=== PATIENT | female | born 1955 | race Caucasian/White ===

== ENCOUNTER 2016-08-04 10:07 | Emergency (ER) | payer OTHER ==
[~2016-08-04] VITALS: Ht 170.1 cm; Wt 55.8 kg
[~2016-08-04 10:07] MED LIST: ADVAIR 250/501 EA INH; ALBUTEROL0.09 MG/Ac INH; ALBUTEROL2.5 MG/0.5 INH; BACTRIM DS 8001 TA1 PO; CLORAZEPATE DI7.5 MG PO; CYCLOBENZAPRINE15 M1 PO; DULOXETINE HCL DR 60; HYDROCODONE BIT1 T11 PO; HYDROCODONE-ACETAMIN; KEFLEX500 MG PO; MELOXICAM15 MG PO; METOPROLOL SUCC ER 2; NASONEX0.05 MG/AC NAS; OMEPRAZOLE DR20 MG PO; PREDNISONE10 MG PO; SIMVASTATIN10 MG PO; SINGULAIR10 MG PO; SPIRIVA -- 3018 MCG PO; VIBRAMYCIN100 MG PO
[2016-08-04] MEDS ORDERED: PROAIR HFA8.5 GM INH (10:19)
[2016-08-04] MEDS ORDERED: ASPIR LOW81 MG PO (10:20)
[2016-08-04] MEDS ORDERED: DULOXETINE HCL60 MG PO (10:20)
[2016-08-04] MEDS ORDERED: METOPROLOL SUCC25 M2 PO (10:20)
[2016-08-04] MEDS ORDERED: MONTELUKAST SOD10 MG PO (10:21)
[2016-08-04] MEDS ORDERED: HYDROCODONE BIT1 T20 PO (10:21)
[2016-08-04] MEDS ORDERED: Tranxene7.5 MG PO (10:21)
[2016-08-04] MEDS ORDERED: CYCLOBENZAPRINE10 MG PO (10:22)
[2016-08-04] MEDS ORDERED: OMEPRAZOLE D/R20 MG PO (10:22)
[2016-08-04] MEDS ORDERED: NASONEX0.05 MG/AC NAS (10:22)
[2016-08-04] MEDS ORDERED: ADVAIR HFA 230/1 AER INH (10:23)
[2016-08-04] MEDS ORDERED: MELOXICAM15 MG PO (10:23)
[2016-08-04] MEDS ORDERED: DULE1ARO INH (10:23)
[2016-08-04] MEDS ORDERED: SIMVASTATIN10 MG PO (10:24)
[2016-08-04 10:50] LABS: BASO # 0.1 10*3/uL (0.0-0.1); BASO % 0.6 % (0.0-1.0); EOS # 0.6 10*3/uL (0.0-0.4); EOS % 4.8 % (1.0-4.0); HEMATOCRIT 42.6 % (37.0-47.0); HEMOGLOBIN 13.9 g/dl (12.0-16.0); IG # 0.1 10*3/uL (0.0-0.1); LYMPH # 3.4 10*3/uL (1.3-4.4); LYMPH % 27.7 % (27.0-41.0); MEAN CELL VOLUME 94.9 fl (81.0-99.0); MEAN CORPUSCULAR HGB CONC 32.6 g/dl (33.0-37.0); MONO % 7.7 % (3.0-9.0); NEUT # 7.3 10*3/uL (2.3-7.9); NEUT % 58.8 % (47.0-73.0); PLATELET COUNT AUTOMATED 407 10*3/uL (130-400); RED BLOOD COUNT 4.49 10*6/uL (4.10-5.10); WHITE BLOOD COUNT 12.4 10*3/uL (4.8-10.8)
[2016-08-04 11:07] LABS: ALBUMIN 3.7 gm/dl (3.1-4.5); ALKALINE PHOSPHATASE 95 U/L (45-117); BILIRUBIN, TOTAL 0.5 mg/dl (0.2-1.0); BUN 7 mg/dl (7-24); CARBON DIOXIDE 32 mmol/L (21-32); CHLORIDE 95 mmol/L (98-107); EST GLOM FILT AFRICAN AMERICAN > 60 ml/min; GLUCOSE 97 mg/dL (65-99); MAGNESIUM 1.9 mg/dL (1.5-2.1); POTASSIUM 4.4 mmol/L (3.5-5.1); SGOT/AST 11 IU/L (3-35); SGPT/ALT 13 U/L (12-78); SODIUM 132 mmol/L (136-145); TOTAL PROTEIN 8.2 gm/dL (6.4-8.2)
[2016-08-04 11:08] LABS: TROPONIN I < 0.015 ng/ml (<0.045)
[2016-08-04] MEDS ORDERED: AVPAK AZITHROM250 M1 PO (11:13)
[2016-08-04] MEDS ORDERED: PREDNISONE50 MG PO (11:24)
== END 2016-08-04 11:39 | disposition left against medical advice (07) ==
LOC: ED 10:07
PROVIDERS: Student in an Organized Health Care Education/Training Program
DX: A41.9 Sepsis, unspecified organism (principal); J44.9 Chronic obstructive pulmonary disease, unspecified; F17.200 Nicotine dependence, unspecified, uncomplicated; Z79.899 Other long term (current) drug therapy; Z79.82 Long term (current) use of aspirin

== ENCOUNTER 2017-01-06 15:44 | Inpatient (IN) | payer OTHER ==
[~2017-01-06] VITALS: Ht 170.1 cm; Wt 52.7 kg
--- NOTE | ~2017-01-06 | PR ---
[place], [place] PROGRESS NOTE NAME: ADELINE VAZQUEZ [facility] #: [id number] UNIT #: [id number] ROOM: 415 DOCTOR: LUCILLE FISHER MD,ADRIANE BIRTHDATE: [birth year] DOS: 01/10/2017 SUBJECTIVE: She has been still noted with coughing and expectorating moderate amount of purulent sputum. Shortness of breath has been noted with gradual reduction, but still noted significant shortness of breath. Denies symptoms of chest pain. Symptoms of hemoptysis using oxygen supplementation via nasal cannula. Continue bronchodilators and antibiotics. OBJECTIVE: VITAL SIGNS: For the patient which has been recorded showed normal temperature, respiratory rate 20, heart rate 116, 97, blood pressure 106/86-139/84. Intake for the patient 2440 mL, the output was not recorded. Pulse ox saturation on 2 liters via nasal cannula was 94% saturation recorded. HEENT: Showed no new change. NECK: Supple. CARDIOVASCULAR: S1, S2 audible. LUNGS: Decreased breath sounds noted in the lungs bilaterally with expiratory wheezing, no crackles. ABDOMEN: Soft, nontender. LABORATORY DATA: BMP: Sodium 129, CO2 of 33. CBC of this morning, WBC count 15.5, hemoglobin 10.2, hematocrit 32.2, and platelet count 435,000. Culture of the sputum for patient previously noted with evidence of Enterobacter cloacae. Echocardiogram that was done for this patient on 01/09/2017 for the patient, which was assessed by Dr. Stevens for the patient reported that findings of possibility of small pleural fluid. No major other abnormalities for the patient were described. IMPRESSION: 1. The patient who has been currently noted with findings of acute severe exacerbation of chronic obstructive pulmonary disease, acute tracheobronchitis, gram-negative infection, Enterobacter cloacae. 2. Area of scarring in the patient's right upper lobe for this patient as well as a new pulmonary nodule in the left upper lobe for the patient, which requires further assessment to rule out malignant process. PLAN OF TREATMENT: The patient on current antibiotics for this patient based on the current culture results and sensitivities. Continuation of the oxygen supplementation as well. Continue current dose of Solu-Medrol 60 mg b.i.d., which was changed from yesterday to this dose. No further reduction for this patient at this time needs to be done today. Other supportive therapy, plan of management, maintain oxygen saturation at 90% greater. [place], [place] PROGRESS NOTE NAME: ADELINE VAZQUEZ UNIT #: [id number] ROOM: [facility] DOCTOR: ADRIANE KARIMI MD BIRTHDATE: [birth year] ADRIANE ADKINS MD CM:PNTRANS [phone] ADRIANE FISHER MD 01/10/17 1306 interface
--- NOTE | ~2017-01-06 | PR ---
[place], [place] PROGRESS NOTE [facility]: [id number] UNIT #: [id number] ROOM: 415 DOCTOR: ADRIANE KARIMI MD BIRTHDATE: [birth year] DOS: 01/09/2017 SUBJECTIVE: She has been noted better this morning with reduction in symptoms of shortness breath. Cough has been still noted at times with some sputum expectoration. Denies symptoms of chest pain. Denies symptoms of hemoptysis. She was continued on oxygen supplementation with the bronchodilators and also receiving corticosteroids and antibiotics. Currently, the patient was receiving the Levaquin. OBJECTIVE: VITAL SIGNS: For the patient which has been recorded showed the blood pressure recorded 144/88, heart rate 106, respiratory rate 18, temperature was normal. HEENT: Showed no new change. NECK: Supple. CARDIOVASCULAR: S1, S2 audible. LUNGS: Noted with moderate decreased breath sounds noted in the lungs bilaterally. Expiratory wheezing was present. ABDOMEN: Soft, nontender. EXTREMITIES: Shows no edema. LABORATORY DATA: BMP this morning, sodium 132, remaining BMP was normal. CBC: WBC count 19,000, hemoglobin 9.8, hematocrit 30.7, platelet count was normal. Culture of the sputum for the patient from the 4th shows evidence of heavy growth of gram-negative bacilli, which has been identified as Enterobacter cloacae that were noted sensitive to multiple antibiotics including fluoroquinolones, which is already received by the patient. IMPRESSION: 1. The patient who has been currently treated in the hospital for the medical management of acute exacerbation of chronic obstructive pulmonary disease with acute bacterial bronchitis with Enterobacter cloacae. 2. Pulmonary nodule in the patient's left upper lung as pleural thickening of the right upper lung, needs further to be investigated to exclude any malignant process. PLAN OF TREATMENT: Continuation of current antibiotics and bronchodilators and oxygen supplementation. Change the dose of the corticosteroid from 60 mg q.8 hours to 60 mg b.i.d. dosing. Monitor respiratory status closely. Consider physical therapy eval. Usual care. All other treatment plan and management to be continued for the patient based on the progression of the illness. [place], [place] PROGRESS NOTE NAME: ADELINE VAZQUEZ UNIT #: [id number] ROOM: 415 DOCTOR: AZIZ ADRIANE FISHER MD BIRTHDATE: [birth year] ADRIANE ADKINS MD CM:MORGAN [phone] ADRIANE FISHER MD 01/09/17 1327 interface
--- NOTE | ~2017-01-06 | PR ---
[place], [place] PROGRESS NOTE NAME: ADELINE VAZQUEZ [facility] #: [id number] UNIT #: [id number] ROOM: 415 DOCTOR: ADRIANE KARIMI MD BIRTHDATE: [birth year] DOS: 01/11/2017 SUBJECTIVE: The patient was independently seen and examined with [id number] encounter. The history was confirmed and physical examination performed, all the available labs were reviewed. Any changes in the medical management were done personally for today's visit. The note done by the medical illustrator was approved as well. She has been noted comfortable at this time, resting on the chair with reduction of symptoms of shortness breath was noted. Denies symptoms of hemoptysis still noted with overall general weakness and fatigue. OBJECTIVE: VITAL SIGNS: For the patient which were recorded showed the temperature noted recorded normal, respiratory rate 20, heart rate 126-92, blood pressure 116/64-149/92, pulse oxygen saturation on 2 liters nasal cannula 93% saturation recorded. HEENT: Shows no acute change. NECK: Supple. CARDIOVASCULAR: S1, S2 audible. LUNGS: Noted moderate decreased breath sounds, scattered wheezing. No crackles. ABDOMEN: Soft, nontender. LABORATORY DATA: BMP today, sodium still noted mildly decreased at 131. CBC was noted as hemoglobin 9.3, hematocrit 28.8. IMPRESSION: 1. Persistent mild hyponatremia was still noted. At this time, the etiology remains unclear. 2. Resolving acute exacerbation of chronic obstructive pulmonary disease as well. 3. Overall severe debility was still noted. Ambulation were noted quite limited. PLAN OF MANAGEMENT: The patient will benefit from physical therapy assessment. The patient to determine further disposition. Rather the patient will need the correction facility placement or home physical therapy, the patient needs to be determined. Uric acid, TSH level, random cortisol level was ordered for the assessment of the low sodium, which has been noted persistent. Other etiology may be considered as SIADH or medication induced hyponatremia. [place], [place] PROGRESS NOTE NAME: ADELINE VAZQUEZ [facility] #: [id number] UNIT #: [id number] ROOM: 415 DOCTOR: ADRIANE KARIMI MD BIRTHDATE: [birth year] ADRIANE ADKINS MD CM:PNTRANS [phone] ADRIANE FISHER MD 01/11/17 1145 interface
--- NOTE | ~2017-01-06 | PR ---
[place], [place] PROGRESS NOTE NAME: ADELINE VAZQUEZ [facility] #: [id number] UNIT #: [id number] ROOM: 415 DOCTOR: LUCILLE FISHER MD,ADRIANE BIRTHDATE: [birth year] DOS: 01/12/2017 PULMONARY FOLLOW NOTE HISTORY OF PRESENT ILLNESS: The patient was independently seen and examined, [id number] encounter. The patient history was confirmed. Physical examination was performed. The patient has been noted comfortable at this time, still noted with limited mobility for this patient. Shortness of breath, cough has been resolving. OBJECTIVE: VITAL SIGNS: Normal temperature, respiratory rate 20, heart rate 96, blood pressure 152/79. The pulse oxygen saturation recorded 95% on 2 L nasal cannula. LUNGS: Noted with general reduction in breath sounds, no wheezing or crackles. ABDOMEN: Soft, nontender. LABORATORY DATA: BMP: Sodium 133. Noted with CBC: Hemoglobin 8.6, hematocrit 26.6, platelet count normal, WBC count normal. Uric acid for the patient was noted as normal. TSH was noted as decreased. Random cortisol level noted as normal. IMPRESSION: Persistent mild hypernatremia. Etiology unclear with resolving acute exacerbation of chronic obstructive pulmonary disease and other problems. PLAN OF MANAGEMENT: Physical therapy for this patient. Potential discharge for the patient with home health and physical therapy as well. Additional treatment change in the patient to be made based on the progression of the illness. The dose of the corticosteroid has been already decreased. The assessment and management for this patient were personally completed. Note done by the medical territory manager was approved as well. ADDENDUM. SUBJECTIVE: The patient was evaluated today. She states she continues to improve day after day and she has been working with physical therapy and she was told that she could go with home health rather than needing to be in a SNF. She states she feels less weak today. She does still have a cough, but this is closer to her baseline than any other days during her stay here over the past week. She denies any chest pain, vomiting, diarrhea or any other symptoms. OBJECTIVE: VITAL SIGNS: Temperature is 98.2, pulse 96, respiratory rate 20, blood pressure 153/79, and pulse oximetry is 95% on 2 liters nasal cannula. GENERAL: No acute distress, alert, awake, oriented. HEENT: No changes. NECK: Supple, trachea midline. CARDIOVASCULAR: S1, S2 are audible, borderline tachycardia. Regular rhythm. LUNGS: Decreased breath sounds with scattered wheezes. ABDOMEN: Soft and nontender. [place], [place] PROGRESS NOTE NAME: ADELINE VAZQUEZ UNIT #: [id number] ROOM: [facility] DOCTOR: LUCILLE FISHER MD,ADRAINE BIRTHDATE: [birth year] LABORATORY DATA: CBC shows a WBC of 9.3 and HGB of 8.6, HCT of 26.6 and a platelet count of 370. Basic metabolic panel: Sodium is 133, potassium is 4.1, chloride 97, carbon dioxide is 33, BUN is 10, creatinine 0.56, estimated GFR is more than 60, glucose of 94. Calcium is 7.8. IMPRESSION: 1. Exacerbation of chronic obstructive pulmonary disease with tracheobronchitis. 2. Scarring in the right upper lobe with a pulmonary nodule. PLAN OF TREATMENT: The patient has improved significantly. We will continue with steroids as well as Levaquin. to discharge the patient today with home health, otherwise that is at the discretion of the primary care team. Please see Dr. Adkins's note if you need any more details on the impression and plan. ADRIANE ADKINS MD CM:PNTRANS [phone] ADRIANE FISHER MD 01/13/17 0640 interface
--- NOTE | ~2017-01-06 | PR ---
[place], [place] PROGRESS NOTE NAME: ADELINE VAZQUEZ [facility] #: [id number] UNIT #: [id number] ROOM: 415 DOCTOR: ALECIA BENEDICT DO BIRTHDATE: [birth year] DOS: 01/11/2017 SUBJECTIVE: The patient continues to have shortness of breath and has been coughing as well. She does state that she wants to go home as she is feeling somewhat better. She states that she wants to go home with home health. She is not in any acute distress; however, she does appear to be weak and has been working with physical therapy. OBJECTIVE: VITAL SIGNS: Temperature 98.3, pulse was 126 at 8:00 a.m., respiratory rate is 20, blood pressure 116/64, bedside pulse oximetry 93% on 2 liters nasal cannula. GENERAL APPEARANCE: The patient is not in acute distress, but does appear to be weak and shaky. HEENT: No new changes. No drainage from eyes and there were no masses. NECK: Supple. PULMONARY: Wheezes bilaterally with decreased lung sounds and some scattered rhonchi. CARDIOVASCULAR: S1, S2 heard. Some tachycardia is present. ABDOMEN: Soft, nontender, nondistended. EXTREMITIES: No erythema or edema ____. LABORATORY DATA: Chemistries: Sodium 131, potassium 4.2, chloride 95, carbon dioxide 31, BUN 9, creatinine 0.52, GFR estimated more than 60, calcium 8.1. Thyroid studies and cultures are pending. CBC: WBC is 8.7, hemoglobin 9.3, hematocrit is 28.8 and platelet count is 354. Microbiology: Sputum culture shows heavy gram negative bacteria and moderate yeast, bacteria with Enterobacter cloacae. The patient is on Levaquin currently for which the Enterobacter is sensitive to. IMPRESSION: 1. Exacerbation of chronic obstructive pulmonary disease with acute tracheobronchitis with Enterobacter cloacae. 2. Scarring in the upper right lobe with a new pulmonary nodule. PLAN OF TREATMENT: Solu-Medrol has been increased to 40 b.i.d. Continue with the Levaquin. The patient is currently working with physical therapy. She would like to return home with home health if possible, but we will wait on physical therapy recommendations to see if the patient will be able to potentially go home with home health tomorrow or if Physical Therapy recommends a care home facility due to her weakness and her debility, otherwise no further changes in management. Please attach this note to Dr. Adkins's progress note and see his impression and plan of management for more details. ALECIA BENEDICT DO [place], [place] PROGRESS NOTE NAME: ADEILNE VAZQUEZ UNIT #: [id number] ROOM: [facility] DOCTOR: ALECIA BENEDICT DO BIRTHDATE: [birth year] ADRIANE ADKINS MD CM:PNTRANS [phone] ALECIA BENEDICT DO 01/12/17 0315 interface
--- NOTE | ~2017-01-06 | CON ---
[place], [place] REPORT OF CONSULTATION NAME: ADELINE VAZQUEZ [facility] #: [id number] UNIT #: [id number] ROOM: 415 DOCTOR: ADRIANE KARIMI MD BIRTHDATE: [birth year] DOS: 01/08/2017 PULMONARY CONSULTATION EVALUATION AND MANAGEMENT CONSULTATION REQUESTED BY: Hospitalist services for assessment of the ongoing acute respiratory complaints. HISTORY OF PRESENT ILLNESS: This is a 61-year-old white female who has been known to me in the past but had not been regularly followed up in the office. In 2010, the patient noted with area of scarring and right upper apical abnormality on the CT scan of the chest and the chest x-ray. Bronchoscopy done at that time and the diagnosis of malignancy was excluded. She was noted abnormal findings on the CT scan of the chest and underwent surgical resection of the right upper lobe for this patient. Continue all the abnormal area. The patient with diagnoses of nonspecific interstitial pneumonitis as well as bronchiolitis noted as well as the pulmonary fibrosis and emphysema. There was no evidence of malignancy noted at that time. She had been admitted to the hospital, the patient stated that she has been not here for about a month. The symptoms of shortness of breath, the patient has been noted progressive increase gradually. She was also noted symptoms of cough, which has been noted with some sputum expectoration. Denies symptoms of hemoptysis. The patient denies any symptoms of chest trauma. She had been admitted under the hospitalist service. The patient on 01/06/2017 for further assessment. REVIEW OF SYSTEMS: CONSTITUTIONAL SYMPTOMS: With symptoms of fatigue and tiredness for this patient. Denies any fever or chills. EYES: Denies any burning, redness, or tenderness. CARDIOVASCULAR: Denies anginal pain, edema or pain of the lower extremities. GASTROINTESTINAL: Denies dysphagia, nausea, vomiting, diarrhea, abdominal pain, hematemesis, melena, or abnormal weight loss history. SKIN: Denies lesions or rashes. MUSCULOSKELETAL: Denies acute joint pain, redness, or tenderness. CENTRAL NERVOUS SYSTEM: General weakness and fatigue were noted symptoms of fever or chills. Remaining systems were reviewed and they were noted all negative. PAST MEDICAL HISTORY: 1. Known with history of rheumatoid arthritis. 2. General anxiety disorder. 3. Allergic rhinitis. 4. Chronic obstructive pulmonary disease with centrilobular emphysema. 5. Hypercholesterolemia. 6. Gastroesophageal reflux disease. 7. History of chronic hypoxic respiratory failure, use of oxygen. PAST SURGICAL HISTORY: 1. Cholecystectomy. 2. Fiberoptic bronchoscopy in 2010. 3. Resection of the right upper lobe in [facility] on 12/28/2016. [place], [place] REPORT OF CONSULTATION NAME: [facility]DELINE [facility]ZQUEZ [facility] [id number] UNIT #: [id number] ROOM: 415 DOCTOR: ADRIANE KARIMI MD BIRTHDATE: [birth year] FAMILY HISTORY: The patient's mother at 50 years of complication of myocardial infarction. Father at 84 years complication of cancer of the prostate. History of tuberculosis was also noted in the parents. SOCIAL HISTORY: The patient is currently . She has one daughter. Denies history of alcohol use or illicit drug use. Tobacco use was noted since younger age and smoked up to 2 packs of cigarettes per day. There was no history of occupation-related pulmonary exposure. MEDICATIONS: Current administered medications noted use of Mucinex, meloxicam, Flonase, montelukast, metoprolol succinate, aspirin, Lovenox for DVT prophylaxis, simvastatin, omeprazole, IV Solu-Medrol 60 mg q. 8 hours, DuoNeb q. 4 hours, lorazepam, Rocephin and IV Zithromax and other p.r.n. medications administration. DRUG ALLERGY HISTORY: The patient was noted as no known drug allergies. PHYSICAL EXAMINATION: GENERAL: This is a 61-year-old female who has been noted currently awake and alert without any distress. Height of 5 feet 7 inches, weight of 116 pounds, BMI 18.2. VITAL SIGNS: Normal temperature since admission, respiratory rate 18-22, heart rate of 116-130 with sinus tachycardia, blood pressure 122/77 to 150/93. HEENT: Head was atraumatic. Eyes, nonicterus. NECK: Supple. CARDIOVASCULAR: S1, S2 audible. LUNGS: Noted with moderate reduction in the breath sounds were noted with scattered expiratory wheezing without any crackles. ABDOMEN: Soft, nontender and flat. EXTREMITIES: The patient noted without any edema, clubbing or cyanosis. CENTRAL NERVOUS SYSTEM: Cranial nerves II-XII were no focal deficits. MUSCULOSKELETAL: No deformities. SKIN: Showed no lesions or rashes. Remaining systems were reviewed with the patient, they were noted all negative. LABORATORY DATA: CBC 01/06/2017, hemoglobin 10.6, hematocrit 33.3, platelet count 121,000, normal WBC count on admission. On 01/06, lactic acid normal. PT/PTT 01/06 normal. CMP on 01/06, BUN 6, creatinine was 0.50, glucose 132, CO2 of 33. Tylenol level was noted as less than 3. Alcohol level noted negative. Influenza A and B, nasal washing antigen negative. CBC of 01/07, the patient's WBC count 3.5, hemoglobin 8.9, hematocrit 27.5 with normal platelet count. CMP of the patient that was done yesterday was noted as normal. BUN and creatinine decreased ____. Blood culture from the 01/06 preliminary report, no bacterial growth. Final culture results were pending. The BMP was noted as sodium is still noted 134. Remaining BMP was normal. CBC this morning: WBC count normal, platelet count mildly elevated 403, hemoglobin 9.3, hematocrit 29.5. Ultrasound of both lower extremities was done for arterial duplex, the patient was noted essentially normal results. Sputum culture for this patient was noted [place], [place] REPORT OF CONSULTATION NAME: ADELINE VAZQUEZ UNIT #: [id number] ROOM: [facility] DOCTOR: LUCILLE FISHER MD,[facility] BIRTHDATE: [birth year] with heavy growth of gram-negative bacilli. Gram-stain for this patient yesterday reported many white blood cells, many epithelial cells, many budding yeast, rare gram-negative bacilli, few gram-positive cocci in pairs and cluster suggestive possibly upper respiratory tract dede. CT of the patient that was done for the patient on 01/06/2017 for the patient was reviewed for this patient noted with status post right upper lobectomy, the patient was noted with pleural thickening was noted in the right apex, right upper zone for this patient at the area of the major fissure. Loculated small empty area noted right apex, most likely related to her previous past lobectomy. Centrilobular emphysema changes were noted with 8-mm nodule noted in the left apex, as well as some area of scarring. These findings were noted completely new as compared with the CT scan comparison, which were personally reviewed from [employer] images of 04/28/2016. Areas of scarring for this patient, which has been noted in the right upper lung for this patient was also noted possibly to pleural thickening as a new finding. Diffuse centrilobular emphysema changes were noted in the lungs bilaterally. IMPRESSION: 1. The patient who has been currently admitted to the hospital, being treated for acute exacerbation of chronic obstructive pulmonary disease and acute bronchitis. The current respiratory culture, the patient was noted with evidence of gram-negative bacilli. The patient most likely upper respiratory tract dede. 2. New nodules. The patient noted in the left upper lung, possibility a malignancy to be considered as well as the pleural thickening of the right upper lung, may be post-surgical changes or scar cancer to be considered for further assessment. 3. History of chronic dependence with nicotine was also noted with history of chronic hypoxic respiratory failure. 4. Very mild ____ of the patient. Neurology unclear at the present time. Other past medical history noted in the past history for the patient component. PLAN OF TREATMENT: At this time, the patient will be continued to be treated for acute exacerbation of COPD and acute tracheobronchitis. The abnormality on the CT scan to be assessed with the patient with a PET scan as an outpatient prior to making any further determination, intervention or assessment. Tobacco cessation would be advised. Continuation of bronchodilators every 4 hours. Additional treatment changes will be recommended based on the progression of the illness. [place], [place] REPORT OF CONSULTATION NAME: ADELINE VAZQUEZ UNIT #: [id number] ROOM: [facility] DOCTOR: ADRIANE KARIMI MD BIRTHDATE: [birth year] ADRIANE ADKINS MD CM:CONSTR:REPORT OF CONSULTATION 1450 01/09/17 [id number] interface
[~2017-01-06 15:44] MED LIST changes: +ADVAIR HFA 230/1 AER INH; +ASPIR LOW81 MG PO; +AVPAK AZITHROM250 M1 PO; +CYCLOBENZAPRINE10 MG PO; +DULE1ARO INH; +DULOXETINE HCL60 MG PO; +HYDROCODONE BIT1 T20 PO; +METOPROLOL SUCC25 M2 PO; +MONTELUKAST SOD10 MG PO; +OMEPRAZOLE D/R20 MG PO; +PREDNISONE50 MG PO; +PROAIR HFA8.5 GM INH; +Tranxene7.5 MG PO
[2017-01-06 15:49] VITALS: BP 138/79
[2017-01-06 16:15] LABS: BASO # 0.1 10*3/uL (0.0-0.1); BASO % 0.5 % (0.0-1.0); EOS # 0.3 10*3/uL (0.0-0.4); EOS % 3.5 % (1.0-4.0); HEMATOCRIT 33.3 % (37.0-47.0); HEMOGLOBIN 10.6 g/dl (12.0-16.0); LYMPH # 2.5 10*3/uL (1.3-4.4); LYMPH % 25.5 % (27.0-41.0); MEAN CELL VOLUME 95.7 fl (81.0-99.0); MEAN CORPUSCULAR HGB 30.5 pg (27.0-31.0); MEAN CORPUSCULAR HGB CONC 31.8 g/dl (33.0-37.0); MEAN PLATELET VOLUME 9.3 fl (9.6-12.3); MONO # 0.7 10*3/uL (0.1-1.0); MONO % 7.6 % (3.0-9.0); NEUT # 6.1 10*3/uL (2.3-7.9); NEUT % 62.5 % (47.0-73.0); PLATELET COUNT AUTOMATED 421 10*3/uL (130-400); RED BLOOD COUNT 3.48 10*6/uL (4.10-5.10); WHITE BLOOD COUNT 9.7 10*3/uL (4.8-10.8)
[2017-01-06 16:24] LABS: ACT PARTIAL THROMBO TIME 23.8 SECONDS (20.8-31.5); INTERNATIONAL NORM RATIO 0.9 (2.0-3.5)
[2017-01-06 16:29] LABS: ALBUMIN 2.3 gm/dl (3.1-4.5); ALKALINE PHOSPHATASE 128 U/L (45-117); BUN 6 mg/dl (7-24); CHLORIDE 93 mmol/L (98-107); SGOT/AST 16 IU/L (3-35); SGPT/ALT 16 U/L (12-78); SODIUM 132 mmol/L (136-145); TOTAL PROTEIN 7.5 gm/dL (6.4-8.2)
[2017-01-06 16:30] LABS: ACETAMINOPHEN (TYLENOL) < 2.0 ug/ml (10-30); ETHYL ALCOHOL < 3.0 mg/dl (<3)
--- NOTE | 2017-01-06 16:40 | NUR ---
GUAIAC TEST NEGATIVE
--- NOTE | 2017-01-06 17:15 | NUR ---
PATIENT WITH BANANA BAG INFUSING AT TIME OF ADMISSION
[2017-01-06 17:50] VITALS: BP 96/72
--- NOTE | 2017-01-06 17:50 | NUR ---
A 61, admitted to , under the services of HAILY Lyle DO with a diagnosis of COPD. Chief complaint is SHORTNESS OF BREATH AND RACING HEART. Patient arrived via ambulance from ER. Monitor applied. Initial assessment completed. Vital signs taken and recorded. HAILY LYLE DO notified of admission to the unit. Orders received. See assessment for past medical history, medications and allergies. Patient and/or family oriented to unit. [facility] visitation policy reviewed. Clothing/patient valuable form completed. EMMANUEL NIETO
--- NOTE | 2017-01-06 18:03 | NUR ---
CLARIFIED WITH DR DONOHUE TO FINISH THE ADMINISTRATION OF BANANA BAG BEFORE SWITCHING OVER TO THE NS BOLUS AND 100ML/HR. ALSO GET SPUTUM ON PATIENT AND OK TO GIVE FLU VACCINE PER PATIENT'S REQUEST.
[2017-01-06] MEDS ORDERED: PERCOCET 7.5-31 EACH PO (18:16)
[2017-01-06] MEDS ORDERED: NORCO 7.5-3251 EACH PO (18:18)
[2017-01-06] MEDS ORDERED: SPIRIVA18 MCG PO (18:25)
--- NOTE | 2017-01-06 18:27 | NUR ---
SPOKE TO DR DONOHUE AND INFORMED HIM THAT PTS HOME MEDICATIONS HAVE BEEN VERIFIED WITH THE PHARMACIST AT [facility].
--- NOTE | 2017-01-06 18:33 | NUR ---
MARIKA FROM PHARMACY VERIFIED THAT ROCEPHIN CAN BE RAN WITH BANANA BAG
[2017-01-06 20:00] VITALS: BP 148/81
[2017-01-07] VITALS: BP 122/70
[2017-01-07 05:55] LABS: HEMATOCRIT 27.5 % (37.0-47.0); HEMOGLOBIN 8.9 g/dl (12.0-16.0); LYMPH # 0.7 10*3/uL (1.3-4.4); LYMPH % 18.6 % (27.0-41.0); MEAN CELL VOLUME 96.5 fl (81.0-99.0); MEAN CORPUSCULAR HGB 31.2 pg (27.0-31.0); MEAN CORPUSCULAR HGB CONC 32.4 g/dl (33.0-37.0); MEAN PLATELET VOLUME 9.4 fl (9.6-12.3); MONO % 0.9 % (3.0-9.0); NEUT # 2.8 10*3/uL (2.3-7.9); NEUT % 79.9 % (47.0-73.0); PLATELET COUNT AUTOMATED 344 10*3/uL (130-400); RED BLOOD COUNT 2.85 10*6/uL (4.10-5.10); RED CELL DISTRI WIDTH 13.1 % (0-14.5); WHITE BLOOD COUNT 3.5 10*3/uL (4.8-10.8)
[2017-01-07 06:01] LABS: ALBUMIN 1.9 gm/dl (3.1-4.5); ALKALINE PHOSPHATASE 98 U/L (45-117); BUN 4 mg/dl (7-24); CHLORIDE 100 mmol/L (98-107); CHOLESTEROL 112 mg/dL (<200); CREATININE 0.57 mg/dL (0.55-1.02); FREE T4 0.95 ng/dl (0.76-1.46); HDL CHOLESTEROL 86 mg/dl (40-60); LDL CHOLESTEROL 20 mg/dL (9-159); PHOSPHOROUS 2.5 mg/dL (2.5-4.9); SGOT/AST 11 IU/L (3-35); SGPT/ALT 12 U/L (12-78); SODIUM 134 mmol/L (136-145); TOTAL PROTEIN 6.1 gm/dL (6.4-8.2); TRIGLYCERIDES 29 mg/dl (<150); VLDL CHOLESTEROL 6 mg/dL (6-40)
[2017-01-07 06:05] LABS: THYROID STIM HORMONE (HS) 0.108 uIU/ml (0.358-4.75)
[2017-01-07 07:46] LABS: VITAMIN D, 25-HYDROXY 30.4 ng/mL (30-100)
[2017-01-07 08:00] VITALS: BP 148/78
--- NOTE | 2017-01-07 08:00 | NUR ---
IN BED AWAKE ALERT AND ORIETNED X3. PT APPEARS SHAKEY. STATES SHE IS TIRED AND HAS A SORE THROAT. NO S/S OF DISTRESS. WILL CONT TO MONITOR. CALL LIGHT IN REACH. SEE ASSESS.
--- NOTE | 2017-01-07 09:00 | NUR ---
NOTIFIED DR BEAR PT HR 130s. HE STATED THAT PATIENT HAS NOT YET HAD ANY OF HER HOME MEDS. I THEN NOTIFIED HIM THAT I DID NOT SEE A NURSE'S NOTE WHERE THE PHARMACY WAS CALLED TO VERIFY THE MED REC AND THAT I WOULD DO SO ONCE THEY OPEN. HE STATED THAT IT IS OK TO GIVE THE METOPROLOL PRIOR TO CALLING THEM DUE TO HER HR AND THAT HE WILL BE ADDING ATIVAN.
--- NOTE | 2017-01-07 10:22 | NUR ---
I CALLED LUISA PINO MULTIPLE TIMES AND DOUBLE CHECKED THAT I WAS CALLING THE RIGHT PHONE NUMBER BY LOOKING IT UP WITH ANOTHER SOURCE. EACH TIME IT HAS BEEN BUSY. I WAS TOLD BY A PATIENT THAT NILESH WAS HAVING A POER OUTAGE TODAY. I DID NOTIFY DR BEAR OF THIS AND HE STATED IT WAS FINE TO GO AHEAD AND GIVE HER THE ORDERED MEDS BUT TO JUST DOUBLE CHECK WITH THE PATIENT THAT SHE IS STILL TAKING THE MEDS PRIOR TO ADMINISTERING THEM.
[2017-01-07 12:00] VITALS: BP 140/84
--- NOTE | 2017-01-07 15:02 | NUR ---
PHYSICIAN WAS NOTIFIED OF DR. LUCILLE GROSS. RESPONSE OF NOTIFICATION WAS OK I WILL SEE HER TOMORROW.. LESLYE GARCIA
[2017-01-07 16:00] VITALS: BP 142/82
--- NOTE | 2017-01-07 16:32 | NUR ---
IN BED RESTING QUIETLY. AWAKENS TO VOICE. NO DISTRESS NOTED. WILL CONT TO MONITOR. CALL LIGHT IN REACH.
[2017-01-07 20:00] VITALS: BP 116/87
--- NOTE | 2017-01-07 20:05 | NUR ---
PT. AWAKE, ALERT, AND ORIENTED X 3 AT THIS TIME. PT. IN BED ON NC @2LPM, HAS SOB AT TIMES, BUT DENIES CURRENTLY, STATES "MAINLY WHEN UP OUT OF BED." HR TACHY, PPP, TRACE EDEMA TO BLE. CALL LIGHT WITHIN REACH, BED IN LOWEST POSITION, WHEELS LOCKED. SEE SHIFT ASSESSMENT.
[2017-01-08] VITALS: BP 136/78
--- NOTE | 2017-01-08 01:41 | NUR ---
24 HR CHART CHECK COMPLETE.
[2017-01-08 05:59] LABS: HEMATOCRIT 29.5 % (37.0-47.0); HEMOGLOBIN 9.3 g/dl (12.0-16.0); LYMPH % 10.5 % (27.0-41.0); MEAN CORPUSCULAR HGB 30.6 pg (27.0-31.0); MEAN CORPUSCULAR HGB CONC 31.5 g/dl (33.0-37.0); MEAN PLATELET VOLUME 9.5 fl (9.6-12.3); MONO # 0.4 10*3/uL (0.1-1.0); MONO % 4.8 % (3.0-9.0); NEUT # 7.7 10*3/uL (2.3-7.9); NEUT % 84.2 % (47.0-73.0); PLATELET COUNT AUTOMATED 403 10*3/uL (130-400); RED BLOOD COUNT 3.04 10*6/uL (4.10-5.10); WHITE BLOOD COUNT 9.1 10*3/uL (4.8-10.8)
[2017-01-08 06:27] LABS: BUN 5 mg/dl (7-24); CHLORIDE 98 mmol/L (98-107); CREATININE 0.49 mg/dL (0.55-1.02); POTASSIUM 4.3 mmol/L (3.5-5.1); SODIUM 134 mmol/L (136-145)
[2017-01-08 08:00] VITALS: BP 150/93
[2017-01-08 12:00] VITALS: BP 123/77
[2017-01-08 16:00] VITALS: BP 146/87
[2017-01-08 20:00] VITALS: BP 116/62
--- NOTE | 2017-01-08 20:10 | NUR ---
Hep Lock discontinued to rt forarm. Leaking at site with antibiotic administration. Site asymptomatic. Pressure applied. Sterile dressing applied. IV started right antecubital with #20 angiocath after 1 attempt. The IV site was prepped with Chloraprep. Heparin lock attached. Sterile dressing applied. Patient tolerated precedure well. Procedure performed according to [facility] policy & procedure. VARGHESE DONG
--- NOTE | 2017-01-08 23:30 | NUR ---
PT RESTING QUIETLY IN BED AT THIS TIME. AWOKE EASILY. NO C/O PAIN VOICED. CEPACOL THROAT LOZENGER GIVEN PER PT REQUEST FOR SORE THROAT. CALL LIGHT IN REACH.
[2017-01-09] VITALS: BP 144/87
--- NOTE | 2017-01-09 01:12 | NUR ---
24 HR chart check completed.
[2017-01-09 04:00] VITALS: BP 138/82
[2017-01-09 06:00] LABS: BUN 9 mg/dl (7-24)
[2017-01-09 06:15] LABS: HEMATOCRIT 30.7 % (37.0-47.0); HEMOGLOBIN 9.8 g/dl (12.0-16.0); MEAN CELL VOLUME 96.2 fl (81.0-99.0); MEAN CORPUSCULAR HGB 30.7 pg (27.0-31.0); MEAN CORPUSCULAR HGB CONC 31.9 g/dl (33.0-37.0); MEAN PLATELET VOLUME 9.5 fl (9.6-12.3); PLATELET COUNT AUTOMATED 380 10*3/uL (130-400); RED BLOOD COUNT 3.19 10*6/uL (4.10-5.10); RED CELL DISTRI WIDTH 12.9 % (0-14.5)
[2017-01-09 06:18] LABS: CHLORIDE 97 mmol/L (98-107); POTASSIUM 4.6 mmol/L (3.5-5.1); SODIUM 132 mmol/L (136-145)
--- NOTE | 2017-01-09 06:36 | NUR ---
PT AWAKE IN BED. NO C/O VOICED AT PRESENT. CALL LIGHT IN REACH.
[2017-01-09 06:41] LABS: PLATELET SUFFICIENCY NORMAL (NORMAL); TOTAL CELLS COUNTED 100 #CELLS; TOXIC GRANULATION SLIGHT
[2017-01-09 08:00] VITALS: BP 144/88
--- NOTE | 2017-01-09 09:00 | NUR ---
Extension Specialist in to talk to patient. Patient states lives at home with alone. There are no steps in the home. Physician: [facility]: [facility] Patient's level of ADLs: MINIMAL ASSIST Patient has working utilities: all working DME: home oxygen and portable tank, patient didn't know the company name Follow-up physician's appointment after d/c: will be made by hospitalist nurse director upon discharge Does patient want to access PORTAL?: no Discharge plan discussed with patient, patient lives at home alone, states she is slow to get around, home oxygen has recently be put into her home, no visiting nurses, patient states she doesn't drive, but has a neighbor that goes to the store for her. discussed with her a discharge plan including a short term shelter for rehab prior to going back home, patient wasn't sure she wanted to do this, also discussed [facility]NA and she didn't know if she wanted this either, case management will see patient in am to again discuss these options. ROSALBA COHEN
--- NOTE | 2017-01-09 09:01 | NUR ---
SPEECH PATHOLOGY Clinical swallowing evaluation completed as per orders. Patient was alert and cooperative. Patient's hx is significant for chronic hypoxic respiratory failure, COPD and gastric reflux. Patient currently receives a regular diet and thin liquids. She denied any current difficulty with swallowing. Some SOB was displayed. Oral skills were WNL in terms of strength, ROM and coordination. Patient was assessed with thin liquids and solid consistency. She displayed adequate oral and pharyngeal swallowing skills. Recommend she remain on present diet. Follow up therapy is not warranted at this time. Results and sergo. were shared with patient and her nurse and they verbalized understanding. Refer to report in [employer] for further information. Thank you for this referral. BECK QUINTERO MSCCC-RUG DESIGNER
[2017-01-09 12:00] VITALS: BP 138/82
--- NOTE | 2017-01-09 14:47 | NUR ---
PT AWAKE ALERT AND ORIENTED X3, DENIES PAIN N/V/D PT DOES C/O OF SOB WITH MINIMAL EXERTION, PRODUCTIVE COUGH FOR VALLE/YELLOW PT IS OXYGEN DEPENDENT.
[2017-01-09 16:00] VITALS: BP 139/79
--- NOTE | 2017-01-09 19:38 | NUR ---
PT. RESTING COMFORTABLY IN BED WATCHING TV AT THIS TIME. HOB IS ELEVATED, CALL LIGHT WITHIN REACH, BED IS LOW AND WHEELS ARE LOCKED. PT. HAS NASAL CANNULA DELIVERING 4LPM OF O2, AND HAS NO COMPLAINTS OR DISTRESS AT THIS TIME. SEE SHIFT ASSESSMENT.
[2017-01-09 20:00] VITALS: BP 138/71
[2017-01-10] VITALS: BP 139/74
[2017-01-10 06:22] LABS: BASO % 0.1 % (0.0-1.0); HEMATOCRIT 32.2 % (37.0-47.0); HEMOGLOBIN 10.2 g/dl (12.0-16.0); LYMPH # 1.7 10*3/uL (1.3-4.4); MEAN CELL VOLUME 97.3 fl (81.0-99.0); MEAN CORPUSCULAR HGB 30.8 pg (27.0-31.0); MEAN CORPUSCULAR HGB CONC 31.7 g/dl (33.0-37.0); MEAN PLATELET VOLUME 9.5 fl (9.6-12.3); MONO % 6.2 % (3.0-9.0); NEUT # 12.7 10*3/uL (2.3-7.9); NEUT % 81.9 % (47.0-73.0); PLATELET COUNT AUTOMATED 435 10*3/uL (130-400); RED BLOOD COUNT 3.31 10*6/uL (4.10-5.10); RED CELL DISTRI WIDTH 12.7 % (0-14.5); WHITE BLOOD COUNT 15.5 10*3/uL (4.8-10.8)
[2017-01-10 06:35] LABS: BUN 9 mg/dl (7-24); CHLORIDE 91 mmol/L (98-107); CREATININE 0.62 mg/dL (0.55-1.02); POTASSIUM 4.2 mmol/L (3.5-5.1); SODIUM 129 mmol/L (136-145)
[2017-01-10 08:00] VITALS: BP 108/86
--- NOTE | 2017-01-10 09:00 | NUR ---
case managment visits with patient, again discussed with her a discharge plan including a short term senior living, patient states she would rather go home and have home health, patient stated she didn't have any preference of home companies and would take anyone that would accept her insurance, capacity planner will make referral to whichever home company will accept patient's insurance
--- NOTE | 2017-01-10 11:53 | NUR ---
PHYSICAL THERAPY PAtient evaluated on 4, full evaluation to follow. Contionue with PT as per plan of care with fall, 02 and acute debility precautions. PAtient wants home with home health- suggest RN and PT. PAtient is moderate complexity via chart reviuew, tests and evaluation: 31950. Thank you for this referral. Maria Luisa Stevens,PT
[2017-01-10 12:00] VITALS: BP 124/76
--- NOTE | 2017-01-10 12:29 | NUR ---
Patient requesting home health, unsure of which agency accepts her insurance. Checked [facility] who does is out of network. Checked with [facility] home health who will accept this patients insurance. Contacted [facility] nurse director of hospitalists for new order. Will fax referral.
--- NOTE | 2017-01-10 13:41 | NUR ---
PHYSICAL THERAPY Patient seen this pm 1:1 for therapy supine in bed following lunch and reports no c/o's pain upon therapist arrival. Patient with continuous use of O2-2L via NC and IV treatment. Patient transfered sup to sit and sit to stand CGA x 1, followed by gait training, SUPERINTENDENT CONTAINER TERMINAL/CGA, 75'x 1, demonstrating several bouts of increased SOB, requiring standing rest breaks < 30 seconds each. Patient instructed and performed purse lip breathing technique and was able to return to supine in bed. Patient remained in bed with call light, tray table and telephone and will continue per POC as tolerated. Bill Jeffrey, LEGUILLON DEBEADER
--- NOTE | 2017-01-10 14:24 | NUR ---
Received new home health order, faxed order and clincals to [facility] with possible discharged date for tomorrow 01/11/17
--- NOTE | 2017-01-10 14:39 | NUR ---
PHYSICAL THERAPY CO-SIGN I approve of the Phyical Therapy notes written above. TRANG MINOR PT
[2017-01-10 16:00] VITALS: BP 171/99
--- NOTE | 2017-01-10 17:41 | NUR ---
NOTIFIED OF EDEMA TO UPPER EXTREMITIES, LEFT >RIGHT. PT DENIES PAIN NO REDNESS NOTED
[2017-01-10 20:00] VITALS: BP 156/92
[2017-01-11] VITALS: BP 153/91
--- NOTE | 2017-01-11 00:53 | NUR ---
24 HR chart check completed.
[2017-01-11 04:00] VITALS: BP 149/92
[2017-01-11 06:03] LABS: BASO % 0.1 % (0.0-1.0); HEMATOCRIT 28.8 % (37.0-47.0); HEMOGLOBIN 9.3 g/dl (12.0-16.0); LYMPH # 1.1 10*3/uL (1.3-4.4); MEAN CELL VOLUME 94.7 fl (81.0-99.0); MEAN CORPUSCULAR HGB 30.6 pg (27.0-31.0); MEAN CORPUSCULAR HGB CONC 32.3 g/dl (33.0-37.0); MONO # 0.5 10*3/uL (0.1-1.0); MONO % 5.9 % (3.0-9.0); NEUT % 80.4 % (47.0-73.0); PLATELET COUNT AUTOMATED 354 10*3/uL (130-400); RED BLOOD COUNT 3.04 10*6/uL (4.10-5.10); RED CELL DISTRI WIDTH 12.7 % (0-14.5); WHITE BLOOD COUNT 8.7 10*3/uL (4.8-10.8)
[2017-01-11 06:07] LABS: BUN 9 mg/dl (7-24); CHLORIDE 95 mmol/L (98-107); CREATININE 0.52 mg/dL (0.55-1.02); POTASSIUM 4.2 mmol/L (3.5-5.1); SODIUM 131 mmol/L (136-145)
[2017-01-11 08:00] VITALS: BP 116/64
--- NOTE | 2017-01-11 08:19 | NUR ---
Awake and alert. Tachycardic w/ breakfast. Toprol given early. IV to RAN edematous/ and partially extracted. Site dc'd. Re-Start per. ABHILASH.
--- NOTE | 2017-01-11 09:00 | NUR ---
case management visits with patient, patient will be going home with [facility], load planner will notify home health when patient is discharged
--- NOTE | 2017-01-11 09:32 | NUR ---
PHYSICAL THERAPY Mrs Tucker was seen this AM 1:1 for her therapy session, Pt supine in bed, has IV, and o2 at 2 L. Transfer supine/sit CG X 1, sitting balance supervision X 1, sitting at bedside. Dr hodgson at this time to see Althea at bedside. Followed by sit/stand and standing balance MOD UNIT TENDER X 1. Gait with MOD UNIT TENDER X 1, with Pt having portable o2 at 2 L and IV Pole and using the cyr handrail with no standing rest this gait of 118' X 1. Pt up in her bedside chair to rest, call light, no complaint. ALLEN CARBALLO BRUSH CLEANER.
--- NOTE | 2017-01-11 09:45 | NUR ---
Currently up in chair. IV site to LA asymptomatic.
[2017-01-11 10:51] LABS: URIC ACID 3.7 mg/dL (2.6-6.0)
[2017-01-11 10:56] LABS: THYROID STIM HORMONE (HS) 0.298 uIU/ml (0.358-4.75)
[2017-01-11 12:00] VITALS: BP 126/68
--- NOTE | 2017-01-11 12:27 | NUR ---
OT EVALUATION COMPLETED AT BS. MODERATE COMPLEXITY BASED ON CHART REVIEW AND EVALUATION.
[2017-01-11 16:00] VITALS: BP 140/76
[2017-01-11 20:00] VITALS: BP 145/72
[2017-01-12] VITALS: BP 101/48
[2017-01-12 06:10] LABS: BUN 10 mg/dl (7-24); CHLORIDE 97 mmol/L (98-107); CREATININE 0.56 mg/dL (0.55-1.02); HEMATOCRIT 26.6 % (37.0-47.0); HEMOGLOBIN 8.6 g/dl (12.0-16.0); LYMPH % 10.6 % (27.0-41.0); MEAN CELL VOLUME 95.7 fl (81.0-99.0); MEAN CORPUSCULAR HGB 30.9 pg (27.0-31.0); MEAN CORPUSCULAR HGB CONC 32.3 g/dl (33.0-37.0); MEAN PLATELET VOLUME 9.4 fl (9.6-12.3); MONO # 0.5 10*3/uL (0.1-1.0); MONO % 5.1 % (3.0-9.0); NEUT # 7.7 10*3/uL (2.3-7.9); NEUT % 83.7 % (47.0-73.0); PLATELET COUNT AUTOMATED 370 10*3/uL (130-400); POTASSIUM 4.1 mmol/L (3.5-5.1); RED BLOOD COUNT 2.78 10*6/uL (4.10-5.10); RED CELL DISTRI WIDTH 12.8 % (0-14.5); SODIUM 133 mmol/L (136-145); WHITE BLOOD COUNT 9.3 10*3/uL (4.8-10.8)
[2017-01-12 08:00] VITALS: BP 147/73
--- NOTE | 2017-01-12 09:00 | NUR ---
case management visits with patient, patient will be going home and land use planner will notify [facility], no other needs at this time
--- NOTE | 2017-01-12 10:18 | NUR ---
PHYSICAL THERAPY Mrs Tucker seen this AM 1:1 for her therapy session and improving. All transfers were supervision x 1, no LOB. Gait with CG X 1, and Pt on portable o2 at 2 L and got just a little SOB after this gait of 120' MIN WEB SYSTEMS DEVELOPER X 1, no LOB just cueing for safety. Pt wanting to get back in bed, call light and phone. ALLEN CARBALLO ASSISTANT CLINICAL NURSE MANAGER.
[2017-01-12 12:00] VITALS: BP 153/79
[2017-01-12 16:00] VITALS: BP 147/89
[2017-01-12] MEDS ORDERED: PREDNISONE10 MG PO (16:19)
[2017-01-12] MEDS ORDERED: LEVAQUIN500 M2 PO (16:19)
[2017-01-12] MEDS ORDERED: METOPROLOL SUCC25 M2 PO (16:19)
[2017-01-12] MEDS ORDERED: MUCINEX ER600 MG PO (16:19)
--- NOTE | 2017-01-12 17:23 | NUR ---
MSDIS Discharge instructions reviewed with patient/family. Patient receptive and verbalizes understanding. Follow-up care arranged. Written instructions given to patient/family. TESSA MORGAN
--- NOTE | 2017-01-13 07:59 | NUR ---
PHYSICAL THERAPY CO-SIGN I approve of the Phyical Therapy notes written above. TRANG MINOR PT
--- NOTE | 2017-01-13 09:38 | NUR ---
[facility] called and stated they were expecting the faxed referral but never received it. Refaxed order and clincals for referral.
== END 2017-01-12 17:23 | disposition home health service (06) | DRG 871 ==
LOC: ED 15:44 → EDHOLD 16:57 → 4E 16:57
PROVIDERS: Family Medicine; Internal Medicine; Internal Medicine Critical Care Medicine; Nurse Practitioner Family; Student in an Organized Health Care Education/Training Program; ADMIT Internal Medicine
DX: A41.9 Sepsis, unspecified organism (principal); J18.9 Pneumonia, unspecified organism; J96.21 Acute and chronic respiratory failure with hypoxia; E43 Unspecified severe protein-calorie malnutrition; E87.8 Other disorders of electrolyte and fluid balance, not elsewhere classified; R13.10 Dysphagia, unspecified; E87.1 Hypo-osmolality and hyponatremia; J84.89 Other specified interstitial pulmonary diseases; J44.0 Chronic obstructive pulmonary disease with (acute) lower respiratory infection; J44.1 Chronic obstructive pulmonary disease with (acute) exacerbation; Z68.1 Body mass index [BMI] 19.9 or less, adult; Z99.81 Dependence on supplemental oxygen; F41.1 Generalized anxiety disorder; K21.9 Gastro-esophageal reflux disease without esophagitis; B96.89 Other specified bacterial agents as the cause of diseases classified elsewhere; E78.00 Pure hypercholesterolemia, unspecified; R65.20 Severe sepsis without septic shock; I73.9 Peripheral vascular disease, unspecified; J20.9 Acute bronchitis, unspecified; D64.9 Anemia, unspecified; F17.200 Nicotine dependence, unspecified, uncomplicated; D47.3 Essential (hemorrhagic) thrombocythemia; R00.0 Tachycardia, unspecified; J20.8 Acute bronchitis due to other specified organisms; R91.1 Solitary pulmonary nodule; Z71.6 Tobacco abuse counseling; Z79.1 Long term (current) use of non-steroidal anti-inflammatories (NSAID); Z79.51 Long term (current) use of inhaled steroids; Z79.899 Other long term (current) drug therapy; Z90.49 Acquired absence of other specified parts of digestive tract; Z79.82 Long term (current) use of aspirin; Z82.49 Family history of ischemic heart disease and other diseases of the circulatory system; Z80.42 Family history of malignant neoplasm of prostate

== ENCOUNTER 2017-01-24 12:09 | Inpatient (IN) | payer OTHER ==
[~2017-01-24] VITALS: Ht 170.1 cm; Wt 59.1 kg
[~2017-01-24 12:09] MED LIST changes: +ADVAIR HFA 230-12 GM INH; -ADVAIR HFA 230/1 AER INH; +LEVAQUIN500 M2 PO; +MUCINEX ER600 MG PO; +NORCO 7.5-3251 EACH PO; +PERCOCET 7.5-31 EACH PO; +SPIRIVA18 MCG PO
[2017-01-24 12:22] VITALS: BP 114/71
[2017-01-24 13:11] LABS: BASO % 0.1 % (0.0-1.0); EOS # 0.1 10*3/uL (0.0-0.4); EOS % 0.9 % (1.0-4.0); HEMATOCRIT 29.3 % (37.0-47.0); HEMOGLOBIN 9.8 g/dl (12.0-16.0); LYMPH # 1.7 10*3/uL (1.3-4.4); LYMPH % 11.4 % (27.0-41.0); MEAN CELL VOLUME 92.4 fl (81.0-99.0); MEAN CORPUSCULAR HGB 30.9 pg (27.0-31.0); MEAN CORPUSCULAR HGB CONC 33.4 g/dl (33.0-37.0); MEAN PLATELET VOLUME 8.7 fl (9.6-12.3); MONO % 6.7 % (3.0-9.0); NEUT # 11.6 10*3/uL (2.3-7.9); NEUT % 80.5 % (47.0-73.0); PLATELET COUNT AUTOMATED 283 10*3/uL (130-400); RED BLOOD COUNT 3.17 10*6/uL (4.10-5.10); RED CELL DISTRI WIDTH 12.6 % (0-14.5); WHITE BLOOD COUNT 14.4 10*3/uL (4.8-10.8)
[2017-01-24 13:23] LABS: ACT PARTIAL THROMBO TIME 23.5 SECONDS (20.8-31.5)
[2017-01-24 13:26] LABS: ALBUMIN 2.9 gm/dl (3.1-4.5); ALKALINE PHOSPHATASE 72 U/L (45-117); BUN 7 mg/dl (7-24); CHLORIDE 79 mmol/L (98-107); CREATININE 0.44 mg/dL (0.55-1.02); LIPASE 64 U/L (73-393); POTASSIUM 3.8 mmol/L (3.5-5.1); SGOT/AST 16 IU/L (3-35); SGPT/ALT 23 U/L (12-78); SODIUM 121 mmol/L (136-145); TOTAL PROTEIN 6.2 gm/dL (6.4-8.2)
[2017-01-24 13:28] LABS: TROPONIN I < 0.015 ng/ml (<0.045)
--- NOTE | 2017-01-24 13:43 | NUR ---
PATIENT ONTO BEDSIDE CHAIR AT THIS TIME.
--- NOTE | 2017-01-24 13:59 | NUR ---
A 61, admitted to , under the services of HOLDEN Mckenzie DO with a diagnosis of METABOLIC ENCEPHALOPATHY, HYPONATREMIA. Chief complaint is CONFUSION. Patient arrived via bed from ER. Monitor applied. Initial assessment completed. Vital signs taken and recorded. HOLDEN MCKENZIE DO notified of admission to the unit. Orders received. See assessment for past medical history, medications and allergies. Patient and/or family oriented to unit. [facility]. Clothing/patient valuable form completed. BREANN BEST
[2017-01-24 14:17] LABS: BILIRUBIN 1+ (NEGATIVE); BLOOD TRACE-INTACT (NEGATIVE); CLARITY SL CLOUDY (CLEAR); COLOR YELLOW (YELLOW); GLUCOSE NEGATIVE (NEGATIVE); KETONE 1+ (NEGATIVE); LEUKO ESTERASE NEGATIVE (NEGATIVE); NITRITE NEGATIVE (NEGATIVE); UROBILINOGEN 0.2 E.U./dl (0.2-1.0)
[2017-01-24 14:24] LABS: RBC 0-2 rbc/hpf (0-2)
[2017-01-24 14:33] VITALS: BP 106/76; BP 136/75
[2017-01-24 15:12] VITALS: BP 142/81
--- NOTE | 2017-01-24 15:12 | NUR ---
ASSUMED CARE OF PT. PT HAS BILATERAL 3+ EDEMA WITH PITTING. BILATERAL WEEPING NOTED WITH MODERATED AMOUNT OF DRAINAGE. FLUID FILLED BLISTERS NOTED BILATERALLY WITH AREAS OF BRIGHT RED BLOOD SCATTERED. DISPOSABLE PAD PLACED UNDERNEATH AND LEFT OPEN TO AIR. BILAT FEET ARE COLD TO THE TOUCH WITH ALL TOES BLANCHING <3s. PEDAL PULSES UNABLE TO BE ASSESSED AT THIS TIME DUE TO AMOUNT OF EDEMA AND PAIN. PT ON 3L NC 100%. LUNGS DIMINISHED WITH RHONCHI AND WHEEZING NOTED. PT HAS HX OF COPD. PT DENIES CHEST PAIN, NAUSEA, VOMITING, DIARRHEA. ALSO DENIES DYSURIA, BURNING, AND FREQUENCY UPON URINATION. PT PLACED ON MONITOR. NO COMPLAINTS AT THIS TIME. WILL CONTINUE TO MONITOR PT.
--- NOTE | 2017-01-24 15:18 | NUR ---
PATIENT TAKEN TO 4TH FLOOR BY KAYLEIGH CHAVIS AT THIS TIME.
[2017-01-24 15:39] VITALS: BP 142/81
--- NOTE | 2017-01-24 16:21 | NUR ---
DR. COELHO IN TO SEE PT.
--- NOTE | 2017-01-24 16:38 | NUR ---
PT OFF FLOOR FOR ULTRASOUND.
--- NOTE | 2017-01-24 18:43 | NUR ---
ACCOUNTING OFFICE MANAGER IN ROOM TO STAGE BLE WEEPING WOUNDS/BLISTERS, PER ACCOUNTING OFFICE MANAGER, MEASURMENTS NOT NEEDED. PHOTOS TAKEN PER SUGGESTION OF ACCOUNTING OFFICE MANAGER.
[2017-01-24 20:00] VITALS: BP 137/86
--- NOTE | 2017-01-24 20:19 | NUR ---
[facility] NOTIFIED OF CONS[facility].
--- NOTE | 2017-01-24 20:59 | NUR ---
TALKED TO DR. ADKINS. NEW ORDERS RECIEVED. WILL BE IN TO SEE PT TOMORROW MORNING.
--- NOTE | 2017-01-25 00:06 | NUR ---
DR. LUCAS NOTIFIED AT THIS TIME OF PATIENTS MENTAL STATUS. STATED THAT PATIENT IS ALERT AND ORIENTED BUT APPEARS TO BE STARING OFF AT THE CEILING. PATIENTS EYES ALSO ROLLING TO BACK OF HEAD. THIS NURSE GOT PATIENT UP TO ATTEMPT TO USE THE RESTROOM FOR URINES REQUESTED BY CONSULTING DOCTOR. PATIENT COMPLAINS OF NOTHING. VITALS ARE STABLE. DR. LUCAS STATED THAT SINCE NEPHRO IS AWARE OF THE SODIUM AND THAT THE PATIENT IS ADMITTED WITH METABOLIC ENCEPHALOPATHY THAT WE SHOULD JUST WATCH HER AND UPDATE HIM WITH ANY CHANGES.
--- NOTE | 2017-01-25 01:05 | NUR ---
DR DOUGHERTY CALLED BACK AT THIS TIME INQUIRING ABOUT METOPROLOL NOT BEING GIVEN, THIS NURSE STATED PT HR WAS 59-[address]ICAL OFFICER[address] ASKED FOR ANOTHER HR ON PT. NURSE WAS ADVISED TO CONTINUE WITH ORDERS.
--- NOTE | 2017-01-25 07:52 | NUR ---
PT REQUESTED AND WAS MEDICATED WITH [facility] FOR C/O GENERALIZED BACK PAIN. RESP EASY AND NONLABORED ON O2. NO DISTRESS NOTED. CALL LIGHT IN REACH. WILL MONITOR.
[2017-01-25 08:00] VITALS: BP 136/73
[2017-01-25 08:01] LABS: HEMATOCRIT 35.2 % (37.0-47.0); HEMOGLOBIN 11.4 g/dl (12.0-16.0); MEAN CELL VOLUME 93.9 fl (81.0-99.0); MEAN CORPUSCULAR HGB 30.4 pg (27.0-31.0); MEAN CORPUSCULAR HGB CONC 32.4 g/dl (33.0-37.0); MEAN PLATELET VOLUME 9.3 fl (9.6-12.3); PLATELET COUNT AUTOMATED 307 10*3/uL (130-400); RED BLOOD COUNT 3.75 10*6/uL (4.10-5.10); RED CELL DISTRI WIDTH 12.7 % (0-14.5); WHITE BLOOD COUNT 5.9 10*3/uL (4.8-10.8)
[2017-01-25 08:07] LABS: INTERNATIONAL NORM RATIO 0.9 (2.0-3.5)
[2017-01-25 08:19] LABS: PLATELET SUFFICIENCY NORMAL (NORMAL); TOTAL CELLS COUNTED 100 #CELLS
[2017-01-25 08:23] LABS: CHLORIDE 87 mmol/L (98-107); POTASSIUM 3.6 mmol/L (3.5-5.1); SODIUM 129 mmol/L (136-145)
[2017-01-25 08:37] LABS: ALBUMIN 3.1 gm/dl (3.1-4.5); ALKALINE PHOSPHATASE 79 U/L (45-117); BUN 6 mg/dl (7-24); CHOLESTEROL 188 mg/dL (<200); CREATININE 0.46 mg/dL (0.55-1.02); HDL CHOLESTEROL 119 mg/dl (40-60); LDL CHOLESTEROL 57 mg/dL (9-159); PHOSPHOROUS 3.6 mg/dL (2.5-4.9); SGOT/AST 14 IU/L (3-35); SGPT/ALT 25 U/L (12-78); THYROID STIM HORMONE (HS) 0.157 uIU/ml (0.358-4.75); TOTAL PROTEIN 6.9 gm/dL (6.4-8.2); TRIGLYCERIDES 61 mg/dl (<150); VLDL CHOLESTEROL 12 mg/dL (6-40)
--- NOTE | 2017-01-25 09:00 | NUR ---
Manager Community Development in to talk to patient. Patient states lives at home with alone. There are few steps in the home. Physician: edgard Pharmacy: [facility] Home health services: [facility] Patient's level of ADLs: MINIMAL ASSIST Patient has working utilities: all working DME: home oxygen, portable tanks Follow-up physician's appointment after d/c: will be made by [facility] nurse director upon discharge Does patient want to access PORTAL?: no Discharge plan discussed with patient, patient lives at home alone, daughter checks on her daily and a neighbor also helps her, patient has [facility] at home, patient was recently in the hospital, discussed a discharge plan with her including a short term penitentiary for rehab prior to going back home, patient refused, stated she was going back home and wanted her current home health to continue. order planner will notify [facility] to resume services when patient is medically stable for discharge. ROSALBA COHEN
[2017-01-25 09:46] LABS: VITAMIN D, 25-HYDROXY 10.6 ng/mL (30-100)
[2017-01-25 12:00] VITALS: BP 130/78
--- NOTE | 2017-01-25 12:43 | NUR ---
Patient's right lower extremity has various stages of blisters. Light Serous drainage noted. Edema noted to lateral and medial right ankle. No odor noted. Reddness noted to right lower leg. Wound care recommendation: Cleanse blister area with nss and apply sureprep to periowound apply adaptic, ABDs and cover with kerlix. No tape to the skin.
[2017-01-25 16:00] VITALS: BP 120/55
[2017-01-25 18:47] LABS: BUN 9 mg/dl (7-24); CHLORIDE 86 mmol/L (98-107); CREATININE 0.71 mg/dL (0.55-1.02); POTASSIUM 3.8 mmol/L (3.5-5.1); SODIUM 129 mmol/L (136-145)
[2017-01-25 20:00] VITALS: BP 98/51
--- NOTE | 2017-01-25 20:00 | NUR ---
AAOX3 RESTING IN BED. O2 INTACT AT 3LITERS VIA N/C. LUNGS WITH WHEEZES; PT. HAS A HARSH DRY COUGH. HEP LOCK INTACT TO LEFT ARM; ASYMPTOMATIC. VOICES NO C//O AT THIS TIME. NO DISTRESS NOTED. CALL LIGHT WITHIN REACH.
[2017-01-26] VITALS: BP 105/79
[2017-01-26 06:00] LABS: MEAN CELL VOLUME 94.5 fl (81.0-99.0); MEAN CORPUSCULAR HGB CONC 31.8 g/dl (33.0-37.0); MEAN PLATELET VOLUME 9.4 fl (9.6-12.3); PLATELET COUNT AUTOMATED 258 10*3/uL (130-400); RED CELL DISTRI WIDTH 13.1 % (0-14.5); WHITE BLOOD COUNT 8.2 10*3/uL (4.8-10.8)
[2017-01-26 06:07] LABS: HEMATOCRIT 27.4 % (37.0-47.0); HEMOGLOBIN 8.7 g/dl (12.0-16.0)
[2017-01-26 06:21] LABS: ALBUMIN 2.6 gm/dl (3.1-4.5); BUN 7 mg/dl (7-24); CHLORIDE 91 mmol/L (98-107); CREATININE 0.41 mg/dL (0.55-1.02); PHOSPHOROUS 2.9 mg/dL (2.5-4.9); POTASSIUM 3.7 mmol/L (3.5-5.1); SODIUM 134 mmol/L (136-145); THYROXINE (T4) TOTAL 11.8 ug/dl (4.8-13.9)
[2017-01-26 06:27] LABS: THYROID STIM HORMONE (HS) 0.058 uIU/ml (0.358-4.75)
[2017-01-26 06:34] LABS: OVALOCYTES FEW; PLATELET SUFFICIENCY NORMAL (NORMAL); POLYCHROMASIA SLIGHT; TOTAL CELLS COUNTED 100 #CELLS
[2017-01-26 08:00] VITALS: BP 154/75
[2017-01-26 16:00] VITALS: BP 138/71
--- NOTE | 2017-01-26 19:45 | NUR ---
PT. IS CURRENTLY RESTING IN BED WATCHING TV WITH NC DELIVERING 2LPM. CALL LIGHT IS WITHIN REACH, HOB ELEVATED, BED LOW AND WHEELS LOCKED, NO DISTRESS NOTED. PT. DOES NOT VERBALIZE ANY C/O AT THIS TIME. SEE SHIFT ASSESSMENT.
[2017-01-26 20:00] VITALS: BP 130/72
[2017-01-27] VITALS: BP 100/61
--- NOTE | 2017-01-27 00:30 | NUR ---
NEW IV STARTED IN RIGHT ARM, PT. TOLERATED WELL.
[2017-01-27 06:36] LABS: HEMATOCRIT 27.4 % (37.0-47.0); HEMOGLOBIN 8.9 g/dl (12.0-16.0); LYMPH # 0.6 10*3/uL (1.3-4.4); LYMPH % 7.5 % (27.0-41.0); MEAN CELL VOLUME 95.8 fl (81.0-99.0); MEAN CORPUSCULAR HGB 31.1 pg (27.0-31.0); MEAN CORPUSCULAR HGB CONC 32.5 g/dl (33.0-37.0); MEAN PLATELET VOLUME 9.1 fl (9.6-12.3); MONO # 0.3 10*3/uL (0.1-1.0); MONO % 3.8 % (3.0-9.0); NEUT # 6.9 10*3/uL (2.3-7.9); NEUT % 88.2 % (47.0-73.0); PLATELET COUNT AUTOMATED 235 10*3/uL (130-400); RED BLOOD COUNT 2.86 10*6/uL (4.10-5.10); RED CELL DISTRI WIDTH 13.3 % (0-14.5); WHITE BLOOD COUNT 7.9 10*3/uL (4.8-10.8)
--- NOTE | 2017-01-27 07:50 | NUR ---
Shift chart check completed.
[2017-01-27 08:00] VITALS: BP 145/69
[2017-01-27 08:52] LABS: BUN 6 mg/dl (7-24); CHLORIDE 93 mmol/L (98-107); POTASSIUM 4.2 mmol/L (3.5-5.1); SODIUM 136 mmol/L (136-145)
--- NOTE | 2017-01-27 09:06 | NUR ---
PHYSICAL THERAPY Pnt declined PT services for this admission as felt there was no need. To return home with home health services thru [facility]. Order canceled. Yuli Moses, PT
[2017-01-27 12:00] VITALS: BP 147/85
[2017-01-27] MEDS ORDERED: METOPROLOL SUCC50 M1 PO (12:08)
--- NOTE | 2017-01-27 12:15 | NUR ---
MED REC UPDATED AGAINST MED CLAIM HISTORY & WITH PATIENT & VISITOR THAT HANDLES HER MEDS
[2017-01-27 16:00] VITALS: BP 141/74
--- NOTE | 2017-01-27 17:05 | NUR ---
MEDICATED WITH [facility] FOR GEN ACHES/PAINS THAT HAVE INCREASED SONCE LASIX
--- NOTE | 2017-01-27 19:45 | NUR ---
PT. IS CURRENTLY RESTING IN BED WATCHING TV, O2 IS DELIVERING 2.5LPM VIA NC. HOB IS ELEVATED, BED IS LOW, WHEELS ARE LOCKED AND CALL LIGHT IS WITHIN REACH. SEE SHIFT ASSESSMENT.
[2017-01-27 20:00] VITALS: BP 126/93
[2017-01-28] VITALS: BP 123/88
[2017-01-28 08:00] VITALS: BP 152/79
[2017-01-28] MEDS ORDERED: DOXYCYCLINE100 M3 PO (11:21)
[2017-01-28] MEDS ORDERED: VITAMIN D-32000 UNIT PO (11:21)
[2017-01-28] MEDS ORDERED: PREDNISONE10 MG PO (11:21)
[2017-01-28] MEDS ORDERED: LASIX20 MG PO (11:21)
[2017-01-28] MEDS ORDERED: K-TAB10 MEQ PO (11:21)
--- NOTE | 2017-01-28 14:26 | NUR ---
CCDIS Discharge instructions reviewed with patient/family. Patient receptive and verbalizes understanding. Follow-up care arranged. Written instructions given to patient/family. TESSA MORGAN
--- NOTE | 2017-01-30 10:32 | NUR ---
Received new order to resume home health via [facility]. Faxed order and clincals.
== END 2017-01-28 14:29 | disposition home or self-care (01) | DRG 871 ==
LOC: ED 12:09 → EDHOLD 14:30 → 4E 14:30
PROVIDERS: Emergency Medicine; Hospitalist; Internal Medicine; Internal Medicine Nephrology; ADMIT Internal Medicine
DX: A41.9 Sepsis, unspecified organism (principal); J18.9 Pneumonia, unspecified organism; E43 Unspecified severe protein-calorie malnutrition; G93.41 Metabolic encephalopathy; J96.10 Chronic respiratory failure, unspecified whether with hypoxia or hypercapnia; E87.8 Other disorders of electrolyte and fluid balance, not elsewhere classified; I01.1 Acute rheumatic endocarditis; E87.1 Hypo-osmolality and hyponatremia; L03.116 Cellulitis of left lower limb; L03.115 Cellulitis of right lower limb; Z68.1 Body mass index [BMI] 19.9 or less, adult; F41.9 Anxiety disorder, unspecified; J44.9 Chronic obstructive pulmonary disease, unspecified; R91.1 Solitary pulmonary nodule; I73.9 Peripheral vascular disease, unspecified; D64.9 Anemia, unspecified; F17.210 Nicotine dependence, cigarettes, uncomplicated; Z90.49 Acquired absence of other specified parts of digestive tract; Z79.82 Long term (current) use of aspirin; Z79.51 Long term (current) use of inhaled steroids; Z99.81 Dependence on supplemental oxygen; Z71.6 Tobacco abuse counseling; Z79.899 Other long term (current) drug therapy; Z80.8 Family history of malignant neoplasm of other organs or systems

== ENCOUNTER 2017-02-18 20:15 | Inpatient (IN) | payer OTHER ==
[~2017-02-18] VITALS: Ht 167.6 cm; Wt 46.9 kg
--- NOTE | ~2017-02-18 | CON ---
[place], [place] REPORT OF CONSULTATION NAME: [facility]DELINE [facility]ZQUEZ [id number] UNIT #: [id number] ROOM: 510 DOCTOR: CORTEZ COLE ED.D (FRANCISCO) BIRTHDATE: [birth year] DOS: 02/21/2017 HISTORY OF PRESENT ILLNESS: The patient is a 61-year-old female referred by the hospitalist for competency evaluation. At the present time, this patient is on the 5th floor at [facility]. She states that she worked many jobs throughout her life, but is presently on social security. Her family physician is Dr. Carrillo and her medical history is pertinent for COPD, anxiety, peripheral vascular disease, oxygen dependency and tobacco abuse. Her medications include ProAir, aspirin, vitamin D, Advair, Meloxicam, Hampton, Toprol, omeprazole, potassium, and simvastatin. She does continue to smoke and also is a social drinker. This patient was awake, alert and oriented in all three spheres. She indicated that she fell at home and was quite confused, but at the present time she states she feels much better. She was awake, alert and oriented in all 3 spheres and indicated she was at [facility] and knew the date. She had no difficulty whatsoever with communications. She states that she has friends who look in on her and visiting nurses also. Her short and long-term memory had some mild deficits, but overall she did quite well. She had hesitated occasionally to answer questions, but she had no difficulty retrieving information. It appears that she must have been delirious secondary to her fall or whatever problem has caused her fall, which is apparently unknown at this time. She denies any suicidal thoughts and denies any significant depression. DIAGNOSIS: Delirium, not otherwise specified. RECOMMENDATIONS: In my opinion, this patient is competent to make informed healthcare decisions. Thank you very much for this consult. CORTEZ COLE ED.D CM:CONSTR:REPORT OF CONSULTATION 10 02/21/172030 interface
[2017-02-18 20:15] VITALS: BP 98/46
[~2017-02-18 20:15] MED LIST changes: +DOXYCYCLINE100 M3 PO; +K-TAB10 MEQ PO; +LASIX20 MG PO; +METOPROLOL SUCC50 M1 PO; +VITAMIN D-32000 UNIT PO
[2017-02-18 23:07] LABS: HEMATOCRIT 32.7 % (37.0-47.0); HEMOGLOBIN 11.2 g/dl (12.0-16.0); MEAN CELL VOLUME 90.8 fl (81.0-99.0); MEAN CORPUSCULAR HGB 31.1 pg (27.0-31.0); MEAN CORPUSCULAR HGB CONC 34.3 g/dl (33.0-37.0); MEAN PLATELET VOLUME 9.7 fl (9.6-12.3); PLATELET COUNT AUTOMATED 496 10*3/uL (130-400); WHITE BLOOD COUNT 25.7 10*3/uL (4.8-10.8)
[2017-02-18 23:29] LABS: ALBUMIN 3.1 gm/dl (3.1-4.5); CREATININE 1.53 mg/dL (0.55-1.02); POTASSIUM 4.4 mmol/L (3.5-5.1); TOTAL PROTEIN 6.7 gm/dL (6.4-8.2)
[2017-02-18 23:32] LABS: BILIRUBIN 1+ (NEGATIVE); BLOOD TRACE-INTACT (NEGATIVE); CLARITY CLOUDY (CLEAR); COLOR YELLOW (YELLOW); GLUCOSE NEGATIVE (NEGATIVE); KETONE TRACE (NEGATIVE); LEUKO ESTERASE TRACE (NEGATIVE); NITRITE NEGATIVE (NEGATIVE); SPECIFIC GRAVITY >= 1.030 (1.005-1.030); UROBILINOGEN 0.2 E.U./dl (0.2-1.0)
[2017-02-18 23:35] LABS: TOTAL CELLS COUNTED 100 #CELLS
[2017-02-18 23:36] LABS: MICROCYTOSIS SLIGHT; PLATELET SUFFICIENCY HIGH (NORMAL)
[2017-02-18 23:38] LABS: BACTERIA 1+; EPITHELIAL CELLS 21-30; RBC 0-2 rbc/hpf (0-2)
[2017-02-18 23:41] VITALS: BP 113/95
[2017-02-18 23:53] LABS: CKMB 5.6 ng/ml (0.5-3.6)
--- NOTE | 2017-02-19 00:49 | NUR ---
PATIENT POOR HISTORIAN OF MEDS, PT CONFUSED, HAE MED LIST FROM PREVIOUS VISIT TO [facility], WILL PUT WITH PATIENT TRANSFER PAPERS
--- NOTE | 2017-02-19 00:59 | NUR ---
PATIENT WITH EXTREME DRY SCALY SKIN LOWER EXTREMITIES WITH HEAVY SCABBING TAMMY RIGHT LOWER LEG FOOT AND ANKLE
--- NOTE | 2017-02-19 02:00 | NUR ---
A 61, admitted to 5E, under the services of GUY Houston DO with a diagnosis of MENTAL CONFUSION, UNDERWEIGHT. Chief complaint is MENTAL CONFUSION. Patient arrived via ambulance from ER. Monitor applied. Initial assessment completed. Vital signs taken and recorded. GUY HOUSTON DO notified of admission to the unit. Orders received. See assessment for past medical history, medications and allergies. Patient and/or family oriented to unit. [address] visitation policy reviewed. Clothing/patient valuable form completed. ANTOINETTE POWERS
[2017-02-19 02:18] VITALS: BP 128/111
--- NOTE | 2017-02-19 04:17 | NUR ---
PT RECEIVED RESTORIL FOR EXTREME AGITATION AND RESTLESSNESS.
[2017-02-19 04:46] VITALS: BP 90/70
[2017-02-19 06:07] LABS: HEMATOCRIT 31.1 % (37.0-47.0); HEMOGLOBIN 10.4 g/dl (12.0-16.0); MEAN CELL VOLUME 91.5 fl (81.0-99.0); MEAN CORPUSCULAR HGB 30.6 pg (27.0-31.0); MEAN CORPUSCULAR HGB CONC 33.4 g/dl (33.0-37.0); PLATELET COUNT AUTOMATED 382 10*3/uL (130-400); RED CELL DISTRI WIDTH 11.9 % (0-14.5); WHITE BLOOD COUNT 18.9 10*3/uL (4.8-10.8)
[2017-02-19 06:32] LABS: PLATELET SUFFICIENCY NORMAL (NORMAL); TOTAL CELLS COUNTED 100 #CELLS
[2017-02-19 06:46] LABS: ACT PARTIAL THROMBO TIME 21.9 SECONDS (20.8-31.5)
[2017-02-19 06:52] LABS: ALBUMIN 2.7 gm/dl (3.1-4.5); CKMB 4.8 ng/ml (0.5-3.6); CREATININE 1.44 mg/dL (0.55-1.02); FREE T4 1.39 ng/dl (0.76-1.46); PHOSPHOROUS 4.5 mg/dL (2.5-4.9); POTASSIUM 4.4 mmol/L (3.5-5.1); TOTAL PROTEIN 5.9 gm/dL (6.4-8.2)
[2017-02-19 06:57] LABS: THYROID STIM HORMONE (HS) 0.149 uIU/ml (0.358-4.75)
[2017-02-19 07:04] LABS: TROPONIN I 0.128 ng/ml (<0.045)
--- NOTE | 2017-02-19 07:14 | NUR ---
RECEIVED A CRITICAL LAB FOR TROPONIN. 0.128. CALLED DR LUCAS AND MADE HIM AWARE.
[2017-02-19 08:00] VITALS: BP 134/68
--- NOTE | 2017-02-19 08:00 | NUR ---
ASSESSMENT COMPLETE. PT RESTLESS IN BED, SEEMS AGITATED AT TIMES AND THEN IS DROWSY A FEW MINUTES LATER. CONSTANT MOVEMENT OF UPPER EXTREMITIES, TWITCHING NOTED. PT IS NOT ANSWERING QUESTIONS VERBALLY HOWEVER SHAKING HEAD YES/NO TO SIMPLE QUESTIONS. PATIENT ATKINSON. NO OPEN WOUNDS NOTED. DRY/FLAKEY SKIN TO LOWER EXTREMITIES, SCABBED AREAS TO RIGHT LOWER LEG/ANKLE. NO NEEDES NOTED. WILL CONTINUE TO MONITOR
[2017-02-19 08:26] LABS: VITAMIN D, 25-HYDROXY 35.4 ng/mL (30-100)
--- NOTE | 2017-02-19 08:35 | NUR ---
Shift chart check completed.
--- NOTE | 2017-02-19 09:28 | NUR ---
DR. ELLINGTON NOTIFIED OF CRITICAL TROP OF 0.091. NO NEW ORDERS AT THIS TIME
--- NOTE | 2017-02-19 10:58 | NUR ---
PT IS AWAKE, CONFUSED. BABBLING SOUNDS AND WORDS THAT CANNOT BE MADE OUT. SHAKES HEAD YES/NO TO SIMPLE QUESTIONS HOWEVER YES AND NO DO NOT ALWAYS SEEM TO COORLIATE CORRECTLY. BED ALARM ON. WILL CONTINUE TO MONITOR
--- NOTE | 2017-02-19 11:28 | NUR ---
SPOKE TO DR. CRISTOBAL AND NOTIFIED OF CONSULT. HE WANTS NS DOWN TO 50CC PER HOUR. DISCUSS PATIENT AND LABS WITH PHYSICIAN.
[2017-02-19 12:00] VITALS: BP 138/68
[2017-02-19] MEDS ORDERED: FLONASE ALLERG9.9 ML NAS (13:24)
[2017-02-19] MEDS ORDERED: MELOXICAM15 MG PO (13:27)
[2017-02-19] MEDS ORDERED: TOPROL XL25 MG PO (13:29)
--- NOTE | 2017-02-19 13:30 | NUR ---
HOME MEDICAION LIST UPDATED WITH PHARMACY LIST FROM [facility], MADE DR. ELLINGTON AWARE. HE IS AWARE OF PATIENTS HEART RATE OF 120-140S.
--- NOTE | 2017-02-19 14:26 | NUR ---
DISCUSS PATIENT WITH DR. LONG. ORDER FOR IV LOPRESSOR
--- NOTE | 2017-02-19 14:45 | NUR ---
pt HR 140s, given prn dose of metoprol over 5 minutes; HR currently 115. will continue to monitor.
[2017-02-19 16:00] VITALS: BP 148/77
--- NOTE | 2017-02-19 16:09 | NUR ---
pateint is awake and eating lunch. states stomach is burning, and she is hurting all over. requesting something for pain. pt is currently alert and oriented x3. states she doesn't know what happened at home or remember coming to the hospital. pt given prn norco. see mar. will monitor. hr currently 128
[2017-02-19 20:00] VITALS: BP 121/71
--- NOTE | 2017-02-19 23:01 | NUR ---
PT. AWAKE, ALERT AND ORIENTED X 3 AT THIS TIME. PT. DENIES CP, SOB, PAIN AT THIS TIME. CALL LIGHT WITHIN REACH, BED IN LOWEST POSITION, WHEELS LOCKED. SEE SHIFT ASSESSMENT.
[2017-02-20] VITALS: BP 119/35
--- NOTE | 2017-02-20 02:00 | NUR ---
PT RESTING IN BED WITH EYES CLOSED. NO S AND S OF ACUTE DISTRESS NOTED AT THIS TIME. RESPS EASY AND REGULAR. WILL CONTIUE TO MONITOR.
[2017-02-20 07:17] LABS: HEMATOCRIT 29.4 % (37.0-47.0); HEMOGLOBIN 9.8 g/dl (12.0-16.0); MEAN CELL VOLUME 92.2 fl (81.0-99.0); MEAN CORPUSCULAR HGB 30.7 pg (27.0-31.0); MEAN CORPUSCULAR HGB CONC 33.3 g/dl (33.0-37.0); PLATELET COUNT AUTOMATED 390 10*3/uL (130-400); RED BLOOD COUNT 3.19 10*6/uL (4.10-5.10); WHITE BLOOD COUNT 15.9 10*3/uL (4.8-10.8)
[2017-02-20 07:38] LABS: BUN 17 mg/dl (7-24); CHLORIDE 94 mmol/L (98-107); CREATININE 0.72 mg/dL (0.55-1.02); POTASSIUM 4.7 mmol/L (3.5-5.1); SODIUM 131 mmol/L (136-145)
[2017-02-20 07:39] LABS: CPK 184 U/L (26-192)
[2017-02-20 07:40] LABS: CKMB 3.2 ng/ml (0.5-3.6)
[2017-02-20 08:00] VITALS: BP 120/69
[2017-02-20 08:03] LABS: PLATELET SUFFICIENCY NORMAL (NORMAL); POLYCHROMASIA SLIGHT; TOTAL CELLS COUNTED 100 #CELLS
--- NOTE | 2017-02-20 08:30 | NUR ---
Vice President Sales And Marketing in to talk to patient. Patient states lives at home alone. There are no steps in the home. Physician: Dr. Balta Carrillo Pharmacy: [facility] Home health services: [facility] Patient's level of ADLs: MINIMAL ASSIST Patient has working utilities: yes DME: oxygen, nebulizer, walker, hospital bed Follow-up physician's appointment after d/c: will be made by hospitalist nurse director upon discharge Does patient want to access PORTAL?: no Discharge plan discussed with patient. She lives at home alone. She has a neighbor that checks in on her. Discussed a SNF and patient refuses stating she has 3 dogs at home. She is currently receiving home health services through [facility]. She ambulates with a walker. Will continue to follow for discharge needs. EMMANUEL DARBY
--- NOTE | 2017-02-20 10:27 | NUR ---
Left message for Deepali Tripp at [phone] regarding discharge plans. Awaiting return call.
--- NOTE | 2017-02-20 10:54 | NUR ---
Occupational Therapy evaluation completed this date with full eval to follow. Precautions include fall risk, moderate complexity level [id number], IV UE,acute debility, anxious. Recommend OT per POC and SNF upon d/c to enable safe return home alone. If patient refuses then recommend home with 24 hr supervision and assist and home health SN,PT,OT. Thank you for this referral. Elise Perry OTR/L
--- NOTE | 2017-02-20 11:37 | NUR ---
Physical therapy evaluation completed. Pt appears to be ukept for quite some time. Pt wearing O2 throughout entire session. Pt cooperated to the best of her ability but has a low activity tolerance. Pt was dizzy upon standing, SOB and weak with shaking LE's standing at bedside with walker and 2 therapists at her side. Pt is not safe to get up alone. Pt presents with weakness with dynamic sitting balance and requires frequent rests when performing bed mobility. Pt will benefit from continued PT to assit with increasing safety with functional mobility. Patient reports having 1 EN her home. Pt is too weak to walk this session and unable to assess a step. Recommending SNF placement for safety and increasing functional mobility. Low complexity PT eval d/t time reviewing chart and with patient. Thank you for this referral, Marybel Chambers, PT
[2017-02-20 12:00] VITALS: BP 122/72
--- NOTE | 2017-02-20 12:38 | NUR ---
SPEECH PATHOLOGY Clinical swallowing eval. completed as per orders. Patient was admitted with confusion and evaluation was ordered due to concern for inability to safely swallow. Patient was alert and cooperative throughout evaluation and was visiting with a friend. Her speech was mildly dysarthric but she was mostly understandable. Patient is ordered a regular diet and thin liquids and was assessed with these consistencies. No overt s/s aspiration were displayed however patient was noted to drink rapidly and in large sips, which can increase propensity for aspiration. Recommend patient remain on present diet but implement safe swallow strategies to reduce aspiration risk such as upright positioning for meals, small bites and sips and eating/drinking slowly. Short term follow up is recommended focusing on education and implementation of safe swallow strategies. Results and sergo. were shared with patient and she verbalized understanding. Refer to report in [facility] for further information. Thank you for this referral. BECK QUINTERO MSCCC-RN OPERATING ROOM
--- NOTE | 2017-02-20 14:57 | NUR ---
PHYSICAL THERAPY Patient seen this pm 1:1 for therapy visit, supine in bed upon therapist arrival with continuous O2-5L via NC, bed alarm and IV treatment. Patient reports no new c/o's and states she has had decreased bouts of dizziness during [place] [facility] [place] transfered sup to sit EOB Min A x 1, and able to perform seated B LE therex, all planes x 15 reps each for LE strengthening, followed by several sit to stand transfers, [employer]/Mod A x 1, tolerating < 30 seconds static stand prior to quick onset of fatigue. Patient returned to supine in bed and remained with call light, telephone, tray table and bed alarm activated for safety. Will continue per POC as tolerated, total treatment time 19 minutes. Bill Jeffrey, DIPLOMA DENTAL ASSISTANT
--- NOTE | 2017-02-20 15:00 | NUR ---
Discussed short term SNF with patient and she adamantly refuses stating she is going home. She has to take care of her dogs. Daughter states she was hallucinating at home seeing and talking to people who were not there, she states she doesn't remember that. She is AAOx3. Will continue to follow.
[2017-02-20 16:00] VITALS: BP 130/79
--- NOTE | 2017-02-20 18:47 | NUR ---
NOTIFIED DR COLE FOR NEW CONSULT FOR CONFUSION/CAPACITY. DR COLE STATED HE WILL SEE PT IN AM.
[2017-02-20 20:00] VITALS: BP 103/55
[2017-02-21] VITALS: BP 123/80
[2017-02-21 07:24] LABS: BASO % 0.1 % (0.0-1.0); HEMATOCRIT 29.6 % (37.0-47.0); HEMOGLOBIN 9.3 g/dl (12.0-16.0); LYMPH # 1.1 10*3/uL (1.3-4.4); LYMPH % 6.3 % (27.0-41.0); MEAN CORPUSCULAR HGB 30.3 pg (27.0-31.0); MEAN CORPUSCULAR HGB CONC 31.4 g/dl (33.0-37.0); MEAN PLATELET VOLUME 9.2 fl (9.6-12.3); MONO % 6.2 % (3.0-9.0); NEUT # 14.4 10*3/uL (2.3-7.9); NEUT % 86.4 % (47.0-73.0); PLATELET COUNT AUTOMATED 357 10*3/uL (130-400); RED BLOOD COUNT 3.07 10*6/uL (4.10-5.10); RED CELL DISTRI WIDTH 12.1 % (0-14.5); WHITE BLOOD COUNT 16.7 10*3/uL (4.8-10.8)
[2017-02-21 07:36] LABS: MEAN CELL VOLUME 96.4 fl (81.0-99.0)
[2017-02-21 07:52] LABS: CHLORIDE 98 mmol/L (98-107); POTASSIUM 4.1 mmol/L (3.5-5.1); SODIUM 135 mmol/L (136-145)
[2017-02-21 08:00] VITALS: BP 120/64
--- NOTE | 2017-02-21 08:00 | NUR ---
ASSUMED CARE OF PATIENT. PATIENT WAS COOPERATIVE AND PLEASANT. NO C/O PAIN OR SOB. PATIENT WAS SITTING UP IN CHAIR UPON ASSESSMENT. LUNGS HAD WHEEZES T/O.
[2017-02-21 08:02] LABS: ALBUMIN 2.7 gm/dl (3.1-4.5); BUN 12 mg/dl (7-24); CREATININE 0.61 mg/dL (0.55-1.02); PHOSPHOROUS 1.9 mg/dL (2.5-4.9)
--- NOTE | 2017-02-21 08:30 | NUR ---
Guest Services Agent in to see patient. No new needs or request at this time. Discharge plan undecided at this time.
--- NOTE | 2017-02-21 08:38 | NUR ---
SPEECH PATHOLOGY Patient was seen for treatment this am during breakfast meal. Patient was alert and cooperative. Patient was sitting upright in bedside chair. Her tray was present but she did not initiate self feeding during clinician's presence. Encouragement was provided regarding importance of eating and good nutrition but patient would repeatedly state that she was full or that she had enough, although it looked like she had barely eaten. When asked to take a bite or a drink she did comply, and showed no overt difficulty with adequate mastication, timely swallow, no residue and no coughing. She was not noted to take large, fast sips with liquid as she did yesterday and reeducation was provided regarding safe swallow strategies of eating slowly and in small amounts. Patient was able to recall these strategies and stated that she has been implementing them. It is recommended that patient remain on regular diet and thin liquids. She displays safe tolerance for this diet and is aware of and uses strategies to ensure safety therefore discharge from speech pathology services is recommended at this time. Thank you for this referral. BECK QUINTERO MSCCC-[facility] G[facility]ENING SPECIALIST
--- NOTE | 2017-02-21 09:39 | NUR ---
PHYSICAL THERAPY Patient presented to therapy in seated position with report of feeling tired and at times SOB. Patient agrees to therapy treatment. Patient performed sit to stand transfer x 2 with Max A x 1. Patient stood for about 1 minute each time before she had to sit, due to fatigue and LE weakness. Patient transfered to bedside commode with Mod A X 1. Patient transfered from bedside commode to supine in bed with Mod A X 1. Patient was left in supine in bed with head raised , bed alarm activated, and call light within reach. Patient tolerated treatment with moderate SOB and LE weakness. MIRTA DONNELLY COMMERCIAL DRONE SOFTWARE DEVELOPER
--- NOTE | 2017-02-21 09:59 | NUR ---
PHYSICAL THERAPY Pt seen this AM for her therapy session, Pt supine in bed. Pt on 5 L o2 at this time. Transfer supine/sit CGA X 1, sitting balance supervision x 1. Pt having no complaint of right hip pain. Sit/stand and standing balance MOD A X 1, with marching in place to tolerance X 2, with one sitting rest with this. Followed by transfer into her bedside chair MOD A X 1, and was fatigue with this, Pt with call light and phone. ALLEN CARBALLO RESEARCH ASSOCIATE PROFESSOR.
--- NOTE | 2017-02-21 10:50 | NUR ---
PATIENT SEEN 1:1 OT THIS DATE. IDENTIFIED BY NAME AND DATE OF . PATIENT IN BED UPON ARRIVAL VERBALIZING THAT SHE WAS FATIGUED BUT WILLING TO COMPLETE OT THIS DATE TO TOLERANCE. PATIENT COMPLETED UE STR. ALL PLANES X 15 REPS SEATED EOB WITH VERBAL CUES PACE SELF AND EDUCATION PURSE LIP BREATHING TECHNIQUES. PATIENT REPORTS THAT SHE OFTEN GETS IN A HURRY. PATIENT DEMONSTRATES DECREASE SAFETY AWARENESS WITH VERBAL CUES REQUIRED PROPER HAND PLACEMENT WITH SIT TO STAND FROM BED CGA. COMPLETED STAND TOLERANCE ACTIVITY USE FWW SUPPORT WITH TOLERANCE 30 SECONDS WITH PATIENT VERBALIZING FATIGUE AND REQUESTING TO LIE DOWN. PATIENT COMPLETED SIT TO SUPINE CGA. PATIENT IN BED WITH BED ALARM IN PLACE AND CALL LIGHT WITHIN REACH. WILDA Watkins
[2017-02-21 12:00] VITALS: BP 95/75
[2017-02-21 16:00] VITALS: BP 98/56
[2017-02-21 20:09] VITALS: BP 103/61
[2017-02-22] VITALS: BP 104/61
[2017-02-22 07:03] LABS: BASO % 0.1 % (0.0-1.0); EOS % 0.4 % (1.0-4.0); HEMATOCRIT 30.8 % (37.0-47.0); HEMOGLOBIN 9.6 g/dl (12.0-16.0); LYMPH # 2.7 10*3/uL (1.3-4.4); LYMPH % 27.3 % (27.0-41.0); MEAN CELL VOLUME 99.4 fl (81.0-99.0); MEAN CORPUSCULAR HGB CONC 31.2 g/dl (33.0-37.0); MEAN PLATELET VOLUME 8.7 fl (9.6-12.3); MONO # 0.8 10*3/uL (0.1-1.0); MONO % 7.7 % (3.0-9.0); NEUT # 6.4 10*3/uL (2.3-7.9); NEUT % 63.9 % (47.0-73.0); PLATELET COUNT AUTOMATED 304 10*3/uL (130-400); RED CELL DISTRI WIDTH 12.3 % (0-14.5)
[2017-02-22 07:34] LABS: CHLORIDE 100 mmol/L (98-107); POTASSIUM 3.7 mmol/L (3.5-5.1); SODIUM 137 mmol/L (136-145)
[2017-02-22 07:42] LABS: BUN 8 mg/dl (7-24); CREATININE 0.53 mg/dL (0.55-1.02); PHOSPHOROUS 2.1 mg/dL (2.5-4.9)
--- NOTE | 2017-02-22 07:44 | NUR ---
OCCUPATIONAL THERAPY CO-SIGN I approve of the Occupational Therapy notes written above. GWEN TROY OTR/Roland
[2017-02-22 08:00] VITALS: BP 125/72
--- NOTE | 2017-02-22 08:30 | NUR ---
truck sales manager in to see patient. No new needs or request at this time. When medically stable she will be discharged to home.
--- NOTE | 2017-02-22 09:18 | NUR ---
Patient resting quietly with no c/o discomfort. Respirations easy and regular. Vital signs stable. No overt distress.RESPS EASY ON 2LNC, SPO2 100%. ALERT AND ORIENTED ,SPEECH APPROPRIATE. NO HALLUCINATION/DELUSIONS, SPEECH CLEAR. VIN SIMEON
--- NOTE | 2017-02-22 09:56 | NUR ---
PHYSICAL THERAPY Patient presented to therapy with report of fatigue. Patient agrees to therapy treatment. Patient performed supine to sitting at EOB transfer with Close Supervision. Patient performed sit to stand transfer with CGA X 1. Patient performed standing marches 2 x 10 each at W/W with CGA X 1. Patient transfered to bedside chair and was left in seated position with call light within and LEs raised. Patient tolerated treatment with improving endurance today. MIRTA DONNELLY FUNERAL HOME LOCATION MANAGER
[2017-02-22 12:00] VITALS: BP 107/64
--- NOTE | 2017-02-22 12:30 | NUR ---
PT RESTING WITH EYES CLOSED.RESPS EASY ON 2LNC. NO DISTRESS NOTED. AROUSES EASILY WITHOUT DIFFICULTIES. STABLE AT THIS TIME.BED ALARM INTACT AND CALL LIGHT IN REACH.
[2017-02-22] MEDS ORDERED: FLUCONAZOLE100 MG PO (14:30)
[2017-02-22] MEDS ORDERED: METOPROLOL SUC100 M1 PO (14:30)
--- NOTE | 2017-02-22 16:04 | NUR ---
Discharge instructions reviewed with patient/family. Patient receptive and verbalizes understanding. Follow-up care arranged. Written instructions given to patient/family. SIERRA MORAN
--- NOTE | 2017-02-23 17:00 | NUR ---
PHYSICAL THERAPY CO-SIGN I approve of the Phyical Therapy notes written above. ALEX GARCIA
== END 2017-02-22 16:04 | disposition home or self-care (01) | DRG 871 ==
LOC: ED 20:15 → 5E 23:43
PROVIDERS: Hospitalist; Internal Medicine; Internal Medicine Nephrology; Nurse Practitioner; ADMIT Internal Medicine
DX: A41.9 Sepsis, unspecified organism (principal); N17.1 Acute kidney failure with acute cortical necrosis; E43 Unspecified severe protein-calorie malnutrition; G93.41 Metabolic encephalopathy; J96.11 Chronic respiratory failure with hypoxia; Z99.81 Dependence on supplemental oxygen; N39.0 Urinary tract infection, site not specified; E87.1 Hypo-osmolality and hyponatremia; Z68.1 Body mass index [BMI] 19.9 or less, adult; T79.6XXA Traumatic ischemia of muscle, initial encounter; R65.20 Severe sepsis without septic shock; R74.8 Abnormal levels of other serum enzymes; R74.0 Nonspecific elevation of levels of transaminase and lactic acid dehydrogenase [LDH]; R62.7 Adult failure to thrive; J44.9 Chronic obstructive pulmonary disease, unspecified; W18.39XA Other fall on same level, initial encounter; R31.9 Hematuria, unspecified; F44.89 Other dissociative and conversion disorders; E83.42 Hypomagnesemia; M06.9 Rheumatoid arthritis, unspecified; I73.9 Peripheral vascular disease, unspecified; F41.9 Anxiety disorder, unspecified; Z72.0 Tobacco use; Z79.899 Other long term (current) drug therapy; Z87.01 Personal history of pneumonia (recurrent); Z90.49 Acquired absence of other specified parts of digestive tract; Z90.89 Acquired absence of other organs; Z90.2 Acquired absence of lung [part of]; Z80.8 Family history of malignant neoplasm of other organs or systems; Z71.6 Tobacco abuse counseling; Z79.82 Long term (current) use of aspirin; Y93.89 Activity, other specified; Y92.89 Other specified places as the place of occurrence of the external cause; Y99.8 Other external cause status